=== PATIENT | female | born 1985 | race Caucasian/White ===

== ENCOUNTER 2017-03-14 16:12 | Emergency (ER) | payer OTHER ==
[2017-03-14 16:28] VITALS: RESP 18
[2017-03-14] MEDS ORDERED: PANTOPRAZOLE 40 MG/10 ML VIAL IVP STA (17:02)
[2017-03-14] MEDS ORDERED: SODIUM CHLORIDE 0.9% 1,000 ML IV STA ×2 (17:02)
[2017-03-14] MEDS ORDERED: ONDANSETRON 4 MG/2 ML VIAL IVP STA (17:02)
[2017-03-14 17:31] LABS: Basophils % (A) 1 %; CHCM 35.1; Eosinophils # (A) 0.1 k/uL (0-0.7); Eosinophils % (A) 2 %; HCT 40.7 % (34.0-46.0); HDW 2.34; HGB 13.7 gm/dL (11.4-16.0); Luc # (Auto) 0.11; Luc % (Auto) 2; Lymphocytes # (A) 1.9 k/uL (1.0-4.8); Lymphocytes % (A) 27 %; MCH 31.8 pg (25.0-35.0); MCHC 33.6 g/dL (31.0-37.0); MCV 94.6 fL (80.0-100.0); Mean Platelet Volume 7.5; Monocytes # (A) 0.4 k/uL (0-1.0); Monocytes % (A) 5 %; Neutrophils # (A) 4.6 k/uL (1.3-7.7); Neutrophils % (A) 64 %; RBC 4.31 m/uL (3.80-5.40); RDW 12.6 % (11.5-15.5); WBC 7.1 k/uL (3.8-10.6); WBC (Perox) 7.12
[2017-03-14 17:40] LABS: ALT 32 U/L (9-52); AST 20 U/L (14-36); Alkaline Phosphatase 46 U/L (38-126); Amylase 44 U/L (30-110); Anion Gap 12 mmol/L; Blood Urea Nitrogen 11 mg/dL (7-17); C Reactive Protein <5.0 mg/L (<10.0); Calcium 9.3 mg/dL (8.4-10.2); Carbon Dioxide 25 mmol/L (22-30); Chloride 103 mmol/L (98-107); Glucose 114 mg/dL (74-99); Non-African American GFR(MDRD) >60 (>60 ml/min/1.73 sqM); Potassium 4.1 mmol/L (3.5-5.1); Sodium 140 mmol/L (137-145); Total Bilirubin 0.5 mg/dL (0.2-1.3)
[2017-03-14 17:43] LABS: Amorphous Sediment,Urine Occasional /hpf; Appearance,Urine Clear (Clear); Bilirubin,Urine Negative (Negative); Glucose,Urine (UA) Negative (Negative); Ketones,Urine Negative (Negative); Leukocyte Esterase,Urine Negative (Negative); Mucus,Urine Many /hpf; Nitrite,Urine Negative (Negative); PH, Urine 5.5 (5.0-8.0); Particle Count 6637; Protein,Urine Negative (Negative); RBC,Urine 1 /hpf (0-5); Specific Gravity,Urine 1.022 (1.001-1.035); Squamous Epithelial Cell,Urine 1 /hpf (0-4); UA Billing (MACRO vs. MICRO) MICRO; WBC,Urine 2 /hpf (0-5)
--- NOTE | 2017-03-14 18:14 | XR ---
EXAMINATION TYPE: XR KUB DATE OF EXAM: 03/14/2017 COMPARISON: 04/22/2011 HISTORY: Right-sided pain TECHNIQUE: 2 views FINDINGS: I see no sign of intestinal obstruction or pneumoperitoneum. Fecal pattern is normal. Lung bases are clear. There are no pathologic calcifications over the kidneys. IMPRESSION: Nonacute abdomen. No change.
--- NOTE | 2017-03-14 18:49 | US ---
EXAMINATION TYPE: US abdomen complete DATE OF EXAM: 03/14/2017 COMPARISON: NONE CLINICAL HISTORY: abdominal pain. EXAM MEASUREMENTS: Liver Length: 15.4 cm Gallbladder Wall: 0.24 cm CBD: 0.32 cm Spleen: 9.7 cm Right Kidney: 9.5 x 3.7 x 4.7 cm Left Kidney: 9.8 x 5.0 x 4.5 cm Pancreas: wnl Liver: wnl Gallbladder: anechoic somewhat contracted Evidence for sonographic Holliday's sign: No CBD: wnl Spleen: wnl Right Kidney: No hydronephrosis or masses seen Left Kidney: No hydronephrosis or masses seen Upper IVC: wnl Abd Aorta: wnl Conclusion Negative complete abdominal sonogram.
--- NOTE | 2017-03-14 19:33 | ED ---
Abdominal Pain HPI - General Chief Complaint: Abdominal Pain Stated Complaint: Abd Pain/Back Pain Time Seen by Provider: 03/14/17 16:41 Source: patient Mode of arrival: ambulatory Limitations: no limitations - History of Present Illness Initial Comments: 30 years old female sent with excruciating right upper quadrant pain it started 2 hours ago after she was eating lunch less and she noticed that no fever had some chills and some nausea no vomiting and this is not the first time she had this pain after large meals or after certain meals this pain shows a she has no history of any gallbladder or appendicitis surgeries and she denies any history of kidney stones and rhythm or so for his her family for possible medical history is significant for ablation done and [facility] when she takes collected 9, devious system is negative otherwise - Related Data Home Medications Medication Instructions Recorded Confirmed Flecainide [Tambocor] 50 mg PO DAILY 03/14/17 03/14/17 Norethindrone-E.estradiol-Iron 1 tab PO HS 03/14/17 03/14/17 [Junel Fe 1.5 mg-30 Mcg Tablet] Allergies Allergy/AdvReac Type Severity Reaction Status Date / Time No Known Allergies Allergy Verified 03/14/17 16:47 Review of Systems ROS Statement: Those systems with pertinent positive or pertinent negative responses have been documented in the HPI. ROS Other: All systems not noted in ROS Statement are negative. Past Medical History Past Medical History: No Reported History Additional Past Medical History / Comment(s): see Dr. Gary's H&P History of Any Multi-Drug Resistant Organisms: None Reported Past Surgical History: Orthopedic Surgery Additional Past Surgical History / Comment(s): right knee Past Anesthesia/Blood Transfusion Reactions: Previous Problems w/ Anesthesia Additional Past Anesthesia/Blood Transfusion Reaction / Comment(s): pt had routine colonoscopy and per pt, she went bradycardic and was told they had a hard time bringing her heart rate up, and difficult to wake up post op Past Psychological History: No Psychological Hx Reported Smoking Status: Former smoker Past Alcohol Use History: Occasional Past Drug Use History: None Reported - Past Family History Sister(s) Additional Family Medical History / Comment(s): POTS (POSTURAL ORTHOSTATIC TACHY SYNDROM) Mother Additional Family Medical History / Comment(s): ON MOM'S SIDE, GRANDMA AND UNCLES WITH VALVE ISSUES General Exam - General Exam Comments Initial Comments: General: The patient is awake and alert, in in severe distress Skin: Skin is warm and dry and no rashes or lesions are noted. Eye: Pupils are equal, round and reactive to light, extra-ocular movements are intact; there is normal conjunctiva bilaterally. Ears, nose, mouth and throat: There are moist mucous membranes and no oral lesions. Neck: The neck is supple, there is no tenderness or JVD. Cardiovascular: There is a regular rate and rhythm. No murmur, rub or gallop is appreciated. Respiratory: To auscultation bilateral, no wheezing no rhonchi no distress respiratory harris noticed Gastrointestinal: Very tender in the epigastric area very tender over the right upper quadrant area, she is guarding Back: There is no tenderness to palpation in the midline. There is no obvious deformity. Musculoskeletal: Normal ROM, no tenderness, There is no pedal edema. There is no calf tenderness or swelling. No cords were appreciated. Neurological: CN II-XII intact, Cranial nerves III through XII are intact. There are no obvious motor or sensory deficits. Coordination appears grossly intact. Speech is normal. Psychiatric: Cooperative, appropriate mood & affect, normal judgment. Limitations: no limitations Course Vital Signs 03/14/17 16:25 Temperature 97.9 F Pulse Rate 86 Respiratory 18 Rate Blood Pressure 99/50 O2 Sat by Pulse 99 Oximetry She was reassessed 5 year 1931, CBC, CMP, LFTs, beta hCG, C-reactive protein KUB x-ray and absolutely normal and she is pain-free she was going home. she discussed about the possibility of phenytoin 20 no ulcer or duodenitis was recommended whether she goes on her ppis or h2 blockers she preferred zantac she was told that zantac [id number] 50 mg twice daily for next month and if this does not get better she would need to have a scope him a she agreed that she was also advised to get a family doctor Medical Decision Making - Lab Data Result diagrams: 03/14/17 17:17 03/14/17 17:17 Lab Results 03/14/17 03/14/17 03/14/17 Range/Units 17:17 17:17 17:17 WBC 7.1 (3.8-10.6) k/uL RBC 4.31 (3.80-5.40) m/uL Hgb 13.7 (11.4-16.0) gm/dL Hct 40.7 (34.0-46.0) % MCV 94.6 (80.0-100.0) fL MCH 31.8 (25.0-35.0) pg MCHC 33.6 (31.0-37.0) g/dL RDW 12.6 (11.5-15.5) % Plt Count 288 (150-450) k/uL Neutrophils % 64 % Lymphocytes % 27 % Monocytes % 5 % Eosinophils % 2 % Basophils % 1 % Neutrophils # 4.6 (1.3-7.7) k/uL Lymphocytes # 1.9 (1.0-4.8) k/uL Monocytes # 0.4 (0-1.0) k/uL Eosinophils # 0.1 (0-0.7) k/uL Basophils # 0.0 (0-0.2) k/uL Sodium 140 (137-145) mmol/L Potassium 4.1 (3.5-5.1) mmol/L Chloride 103 (98-107) mmol/L Carbon Dioxide 25 (22-30) mmol/L Anion Gap 12 mmol/L BUN 11 (7-17) mg/dL Creatinine 0.70 (0.52-1.04) mg/dL Est GFR (MDRD) Af Amer >60 (>60 ml/min/1.73 sqM) Est GFR (MDRD) Non-Af >60 (>60 ml/min/1.73 sqM) Glucose 114 H (74-99) mg/dL Calcium 9.3 (8.4-10.2) mg/dL Total Bilirubin 0.5 (0.2-1.3) mg/dL AST 20 (14-36) U/L ALT 32 (9-52) U/L Alkaline Phosphatase 46 (38-126) U/L C-Reactive Protein <5.0 (<10.0) mg/L Total Protein 7.0 (6.3-8.2) g/dL Albumin 4.5 (3.5-5.0) g/dL Amylase 44 (30-110) U/L Lipase 84 (23-300) U/L Urine Color Yellow Urine Appearance Clear (Clear) Urine pH 5.5 (5.0-8.0) Ur Specific [place] 1.022 (1.001-1.035) Urine Protein Negative (Negative) Urine Glucose (UA) Negative (Negative) Urine Ketones Negative (Negative) Urine Blood Small H (Negative) Urine Nitrite Negative (Negative) Urine Bilirubin Negative (Negative) Urine Urobilinogen 2.0 (<2.0) mg/dL Ur Leukocyte Esterase Negative (Negative) Urine RBC 1 (0-5) /hpf Urine WBC 2 (0-5) /hpf Ur Squamous Epith Cells 1 (0-4) /hpf Amorphous Sediment Occasional H (None) /hpf Urine Mucus Many H (None) /hpf Urine HCG, Qual (Not Detectd) 03/14/17 Range/Units 17:17 WBC (3.8-10.6) k/uL RBC (3.80-5.40) m/uL Hgb (11.4-16.0) gm/dL Hct (34.0-46.0) % MCV (80.0-100.0) fL MCH (25.0-35.0) pg MCHC (31.0-37.0) g/dL RDW (11.5-15.5) % Plt Count (150-450) k/uL Neutrophils % % Lymphocytes % % Monocytes % % Eosinophils % % Basophils % % Neutrophils # (1.3-7.7) k/uL Lymphocytes # (1.0-4.8) k/uL Monocytes # (0-1.0) k/uL Eosinophils # (0-0.7) k/uL Basophils # (0-0.2) k/uL Sodium (137-145) mmol/L Potassium (3.5-5.1) mmol/L Chloride (98-107) mmol/L Carbon Dioxide (22-30) mmol/L Anion Gap mmol/L BUN (7-17) mg/dL Creatinine (0.52-1.04) mg/dL Est GFR (MDRD) Af Amer (>60 ml/min/1.73 sqM) Est GFR (MDRD) Non-Af (>60 ml/min/1.73 sqM) Glucose (74-99) mg/dL Calcium (8.4-10.2) mg/dL Total Bilirubin (0.2-1.3) mg/dL AST (14-36) U/L ALT (9-52) U/L Alkaline Phosphatase (38-126) U/L C-Reactive Protein (<10.0) mg/L Total Protein (6.3-8.2) g/dL Albumin (3.5-5.0) g/dL Amylase (30-110) U/L Lipase (23-300) U/L Urine Color Urine Appearance (Clear) Urine pH (5.0-8.0) Ur Specific [place] (1.001-1.035) Urine Protein (Negative) Urine Glucose (UA) (Negative) Urine Ketones (Negative) Urine Blood (Negative) Urine Nitrite (Negative) Urine Bilirubin (Negative) Urine Urobilinogen (<2.0) mg/dL Ur Leukocyte Esterase (Negative) Urine RBC (0-5) /hpf Urine WBC (0-5) /hpf Ur Squamous Epith Cells (0-4) /hpf Amorphous Sediment (None) /hpf Urine Mucus (None) /hpf Urine HCG, Qual Not Detected (Not Detectd) Disposition Clinical Impression: Abdominal pain Disposition: HOME SELF-CARE Condition: Good Instructions: Abdominal Pain (ED) Referrals: None,Stated [Primary Care Provider] - 1-2 days
[2017-03-14 19:35] VITALS: BP 108/54; PULSE 65; TEMP 98.7
== END 2017-03-14 19:48 | disposition home or self-care (01) ==
LOC: EC 16:12
DX: R10.11 Right upper quadrant pain (principal); R68.83 Chills (without fever); R11.0 Nausea; Z87.891 Personal history of nicotine dependence; Z79.3 Long term (current) use of hormonal contraceptives; Z79.899 Other long term (current) drug therapy
CPT/HCPCS: 36415; 80053; 82150; 83690; 85025; 86140; 81001; 81025; 74000; 76700; 99284; 96374; 96375; 96361 ×2; J2405; C9113

== ENCOUNTER 2017-09-04 09:12 | Observation (INO) | payer BC ==
[2017-09-04] MEDS ORDERED: NITROGLYCERIN SL TABS 0.4 MG TAB SUBLINGUAL STA (09:27)
[2017-09-04] MEDS ORDERED: ASPIRIN 81 MG PO STA (09:27)
--- NOTE | 2017-09-04 09:32 | ED ---
Chest Pain HPI - General Chief Complaint: Chest Pain Stated Complaint: Chest Pain Time Seen by Provider: 09/04/17 09:17 Source: patient, RN notes reviewed Mode of arrival: ambulatory Limitations: no limitations - History of Present Illness Initial Comments: This is a 32-year-old female with a history of mitral and aortic valve insufficiency who states she's had left-sided chest tightness for past 2 days it is about 8/10 and seems to get worse with standing and movement she does have exertional dyspnea. She states she does have a history of right ventricular out flow tachycardia. She denies any fevers chills nausea vomiting sweats cough or phlegm production no recent illnesses no new medications. There is extensive family history of heart disease in the patient's family patient is not a smoker she states her last menstrual period was 2 days ago. No drugs or alcohol reported. MD Complaint: chest pain - Related Data Home Medications Medication Instructions Recorded Confirmed Flecainide [Tambocor] 50 mg PO DAILY 03/14/17 09/04/17 Multivitamins, Thera [Multivitamin 1 tab PO DAILY 09/04/17 09/04/17 (formulary)] Allergies Allergy/AdvReac Type Severity Reaction Status Date / Time No Known Allergies Allergy Verified 09/04/17 09:33 Review of Systems ROS Statement: Those systems with pertinent positive or pertinent negative responses have been documented in the HPI. ROS Other: All systems not noted in ROS Statement are negative. EKG Findings - EKG Results: EKG: interpreted by ERMD (Sinus bradycardia with frequent PVCs are is a bigeminal pattern. Rate was 60. Interval 150 QRS duration 94 QT since QTC of 436/436) Past Medical History Past Medical History: No Reported History Additional Past Medical History / Comment(s): see Dr. Gary's H&P rvot History of Any Multi-Drug Resistant Organisms: None Reported Past Surgical History: Orthopedic Surgery Additional Past Surgical History / Comment(s): right knee cardiac ablation Past Anesthesia/Blood Transfusion Reactions: Previous Problems w/ Anesthesia Additional Past Anesthesia/Blood Transfusion Reaction / Comment(s): pt had routine colonoscopy and per pt, she went bradycardic and was told they had a hard time bringing her heart rate up, and difficult to wake up post op Past Psychological History: No Psychological Hx Reported Smoking Status: Former smoker Past Alcohol Use History: Rare Past Drug Use History: None Reported - Past Family History Sister(s) Additional Family Medical History / Comment(s): POTS (POSTURAL ORTHOSTATIC TACHY SYNDROM) Mother Additional Family Medical History / Comment(s): ON MOM'S SIDE, GRANDMA AND UNCLES WITH VALVE ISSUES General Exam - General Exam Comments Initial Comments: This is a well-developed well-nourished awake alert oriented 3 female Limitations: no limitations General appearance: alert, anxious Head exam: Present: atraumatic, normocephalic, normal inspection Eye exam: Present: normal appearance, PERRL, EOMI. Absent: scleral icterus, conjunctival injection, periorbital swelling ENT exam: Present: normal exam, mucous membranes moist Neck exam: Present: normal inspection. Absent: tenderness, meningismus, lymphadenopathy Respiratory exam: Present: normal lung sounds bilaterally, chest wall tenderness (Tenderness to palpation over the left costochondral costal sternal margins and over the pectoralis muscles this does seem to reproduce the patient' s pain.). Absent: respiratory distress, wheezes, rales, rhonchi, stridor Cardiovascular Exam: Present: bradycardia, irregular rhythm, normal heart sounds. Absent: systolic murmur, diastolic murmur, rubs, gallop, clicks GI/Abdominal exam: Present: soft, normal bowel sounds. Absent: distended, tenderness, guarding, rebound, rigid Extremities exam: Present: normal inspection, full ROM, normal capillary refill. Absent: tenderness, pedal edema, joint swelling, calf tenderness Back exam: Present: normal inspection Neurological exam: Present: alert, oriented X3, CN II-XII intact Psychiatric exam: Present: normal affect, normal mood Skin exam: Present: warm, dry, intact, normal color. Absent: rash Course Vital Signs 09/04/17 09:13 Temperature 97.8 F Pulse Rate 48 L Respiratory 18 Rate Blood Pressure 121/57 O2 Sat by Pulse 100 Oximetry - Reevaluation(s) Reevaluation #1: 09/04/17 13:21 The patient states she had no improvement from the IV Toradol. The pain still is reproducible however with certain movements and palpation. Chest Pain MDM - MDM I did review the imaging and reports no acute findings. Patient will be admitted did discuss the case with cardiology and with Dr. Edwards she does have intermittent episodes of I gently. The chest pain though likely musculoskeletal could be related to cardiac etiology. Patient does not want nitroglycerin at this time. Disposition Clinical Impression: Bigeminy, Atypical chest pain Disposition: ADMITTED IP TO THIS HOSP Condition: Stable Referrals: Frank Ramos DO [Primary Care Provider] - 1-2 days
[2017-09-04] MEDS ORDERED: KETOROLAC 30 MG/ML 1 ML VIAL IVP STA (09:47)
--- NOTE | 2017-09-04 10:06 | XR ---
EXAMINATION TYPE: XR chest 2V DATE OF EXAM: 09/04/2017 COMPARISON: NONE TECHNIQUE: PA and lateral views submitted. HISTORY: Irregular heartbeat FINDINGS: The lungs are clear and there is no pneumothorax, pleural effusion, or focal pneumonia. IMPRESSION: 1. No acute process.
[2017-09-04 10:12] LABS: Basophils % (A) 0 %; Eosinophils # (A) 0.2 k/uL (0-0.7); Eosinophils % (A) 3 %; HCT 39.3 % (34.0-46.0); HGB 13.1 gm/dL (11.4-16.0); Lymphocytes # (A) 1.4 k/uL (1.0-4.8); Lymphocytes % (A) 28 %; MCHC 33.3 g/dL (31.0-37.0); Monocytes # (A) 0.3 k/uL (0-1.0); Monocytes % (A) 5 %; Neutrophils # (A) 3.2 k/uL (1.3-7.7); Neutrophils % (A) 62 %; Platelet Count 254 k/uL (150-450); RBC 4.22 m/uL (3.80-5.40); RDW 12.1 % (11.5-15.5); WBC 5.2 k/uL (3.8-10.6)
[2017-09-04 10:24] LABS: D-Dimer 0.37 mg/L FEU (<0.60); Partial Thromboplastin Time 24.3 sec (22.0-30.0); Prothrombin Time 9.7 sec (9.0-12.0)
[2017-09-04 10:25] LABS: ALT 29 U/L (9-52); AST 19 U/L (14-36); Albumin 4.3 g/dL (3.5-5.0); Alkaline Phosphatase 39 U/L (38-126); Anion Gap 11 mmol/L; Blood Urea Nitrogen 11 mg/dL (7-17); Calcium 9.3 mg/dL (8.4-10.2); Carbon Dioxide 26 mmol/L (22-30); Chloride 105 mmol/L (98-107); Glucose 65 mg/dL (74-99); Magnesium 1.9 mg/dL (1.6-2.3); Potassium 4.1 mmol/L (3.5-5.1); Sodium 142 mmol/L (137-145); Total Bilirubin 0.6 mg/dL (0.2-1.3); Total Protein 6.9 g/dL (6.3-8.2)
[2017-09-04 10:45] LABS: Creatine Kinase 73 U/L (30-135)
[2017-09-04 10:57] LABS: Creatine Kinase MB 0.3 ng/mL (0.0-2.4); Troponin I <0.012 ng/mL (0.000-0.034)
[2017-09-04] MEDS ORDERED: NITROGLYCERIN SL TABS 0.4 MG TAB SUBLINGUAL PRN (13:23)
[2017-09-04] MEDS ORDERED: ACETAMINOPHEN TAB 500 MG TAB PO PRN (15:22)
[2017-09-04] MEDS: SODIUM CHLORIDE 0.9% 1,000 ML IV SCH (15:34)
[2017-09-04] MEDS ORDERED: ALPRAZolam 0.25 MG TAB PO PRN (16:44)
[2017-09-04 16:49] LABS: Creatine Kinase 60 U/L (30-135)
[2017-09-04 17:00] LABS: Creatine Kinase MB <0.2 ng/mL (0.0-2.4); Troponin I <0.012 ng/mL (0.000-0.034)
[2017-09-04 18:40] LABS: Glucose,Whole Blood 119 mg/dL (75-99)
--- NOTE | 2017-09-04 18:41 | HP ---
HISTORY AND PHYSICAL DATE OF SERVICE: 09/04/2017. CHIEF COMPLAINT: Palpitations and chest tightness on the left side. HISTORY OF PRESENT ILLNESS: This 32-year-old woman with a past medical history of multiple medical problems including PVCs, mitral and aortic insufficiency, right ventricle outflow tachycardia, history of vertigo as well. Patient had a previous cardiac ablation by Dr. Gary. The patient also has and the patient is on flecainide. For the last week the patient has been having twitching in the chest, left-sided weakness and dizziness, and multiple symptomatology. The patient came to [facility] and was found to be bradycardic with PVCs. She was admitted for evaluation and treatment. Cardiology has been consulted. There is no history of any fevers or rigors. No history of headache, loss of consciousness, seizures. PAST MEDICAL HISTORY: History of mitral aortic insufficiency, right ventricle outflow tachycardia and PVCs, history of cardiac ablation. MEDICATIONS: 1. Multivitamins 1 daily. 2. Flecainide 50 mg. ALLERGIES: None. FAMILY HISTORY: History of POTS and vascular disorder. SOCIAL HISTORY: History of occasional alcohol intake. Previous history of smoking. REVIEW OF SYSTEMS: ENT: No diminished hearing or vision. CARDIOVASCULAR: As mentioned. RESPIRATORY: As mentioned. GI: No nausea or vomiting. : No dysuria. NERVOUS SYSTEM: No numbness or weakness. ALLERGY/IMMUNOLOGY: No hayfever. MUSCULOSKELETAL: As mentioned earlier. HEMATOLOGY/ONCOLOGY: No history of anemia. ENDOCRINE: No history of diabetes or hypothyroidism. CONSTITUTIONAL: As mentioned. DERMATOLOGY: As mentioned. PSYCHIATRY: As mentioned. PHYSICAL EXAMINATION: Alert, oriented x3. Pulse 58, blood pressure 98/40, respirations 17, temperature 97.8 pulse ox 100% on room air. HEENT: Oral mucosa moist. NECK: No jugular venous distention. No lymph node enlargement. CARDIOVASCULAR: S1 and S2. Occasional irregularity. S3 or S4. LUNGS: Breath sounds diminished at the bases. No rhonchi no crackles. ABDOMEN: Soft, nontender. No mass palpable. LEGS: No edema. No swelling. NERVOUS SYSTEM: Higher functions as mentioned earlier, moves all 4 limbs. LYMPHATICS: No lymph nodes palpable in the neck. SKIN: No rash or ulcer. LAB STUDIES: Glucose 65, otherwise normal findings. EKG is not available. Rhythm strip showed PVCs. Chest x-ray no acute process. ASSESSMENT: 1. Left-sided chest pain with cardiac arrhythmia. 2. History of premature ventricular contractions and right ventricular outflow tract tachycardia and cardiac ablation. 3. Mitral and aortic insufficiency. 4. History of vertigo. 5. History hypoglycemia. 6. History of recent ear infection. 7. History of degenerative joint disease. 8. History of bradycardia. 9. Remote nicotine dependence. RECOMMENDATIONS AND DISCUSSION: This 32-year-old woman who presented with multiple complex medical issues, we will monitor the patient closely, continue the current management and symptomatic treatment. At this time I recommend telemetry. Continue the home medications. Cardiology evaluation. A set of troponins. Monitor blood sugars closely. Otherwise, exact etiology of hypoglycemia is also unknown at this time. I would recommend close follow up with Dr. Ramos in the outpatient setting. Otherwise further recommendations to follow. LOURDES / TRAVON: [id number] / MTDD
[2017-09-04 19:07] LABS: Appearance,Urine Clear (Clear); Bilirubin,Urine Negative (Negative); Blood,Urine Negative (Negative); Color,Urine Light Yellow; Glucose,Urine (UA) Negative (Negative); Ketones,Urine Negative (Negative); Leukocyte Esterase,Urine Negative (Negative); Nitrite,Urine Negative (Negative); PH, Urine 6.5 (5.0-8.0); Protein,Urine Negative (Negative); Specific Gravity,Urine 1.006 (1.001-1.035); Urobilinogen,Urine <2.0 mg/dL (<2.0)
[2017-09-04 19:17] LABS: Amphetamine Screen,Urine Not Detected (NotDetected); Barbiturate Screen,Urine Not Detected (NotDetected); Benzodiazepines Screen,Urine Not Detected (NotDetected); Cocaine Screen,Urine Not Detected (NotDetected); Methadone Screen, Urine Not Detected (NotDetected); Opiate Screen,Urine Not Detected (NotDetected); Oxycodone Screen, Urine Not Detected (NotDetected); Phencyclidine Screen,Urine Not Detected (NotDetected); Tricyclic Antidepressant,Urine Not Detected (NotDetected); Urn Cannabinoid Scrn Not Detected (NotDetected)
[2017-09-04 19:20] VITALS: RESP 16
[2017-09-04 22:06] LABS: Creatine Kinase 60 U/L (30-135)
[2017-09-04 22:19] LABS: Creatine Kinase MB <0.2 ng/mL (0.0-2.4); Troponin I <0.012 ng/mL (0.000-0.034)
[2017-09-05] MEDS ORDERED: ONDANSETRON 4 MG/2 ML VIAL IVP PRN (03:54)
[2017-09-05] MEDS ORDERED: PANTOPRAZOLE 40 MG TABLET PO SCH (07:30)
[2017-09-05 07:45] LABS: Magnesium 2.1 mg/dL (1.6-2.3)
[2017-09-05] MEDS ORDERED: FLECAINIDE 50 MG TAB PO SCH (09:00)
[2017-09-05] MEDS ORDERED: ASPIRIN 325 MG TAB PO SCH (09:00)
[2017-09-05] MEDS ORDERED: MULTIVITAMINS, THERA 1 EACH TAB PO SCH (12:00)
[2017-09-05] MEDS ORDERED: SODIUM CHLORIDE 0.9% 500 ML IV ONE (14:55)
--- NOTE | 2017-09-05 15:07 | P.CRDCN ---
History of Present Illness Consult date: 09/05/17 History of present illness: Mrs. Farias is a pleasant 32-year-old female past medical history significant for right ventricular outflow PVC's s/p ablation 2016 that was unsuccessful. She has been maintained on flecanide since. She presented to the hospital with complaints of generalized weakness, dizziness, nausea, chest pain and palpitations. EKG on arrival reveals sinus bradycardia with frequent PVC's. After each PVC there is atrial compensation and return to normal complex. She states she has not taken her flecanide since Friday morning. Overnight she got up to go to the bathroom and became acutely dizzy and nauseated. This persisted for over an hour. Antiemetics Zofran was given and she got relief. Orthostatic blood pressures were obtained and her blood pressure improved with each position change although blood pressure supine was 71/50. Chest x-ray negative for acute cardiopulmonary process. Laboratory data reviewed, hemoglobin 13.1, platelets 254, d-dimer 0.37, potassium 4.1, magnesium 1.9, cardiac enzymes negative 3, proBNP 127, LDL 95. Current cardiac medications flecanide 50 mg daily. Most recent echocardiogram performed in 2016 reveals preserved left ventricular systolic function with ejection fraction 50-55% with no evidence of valvular heart disease. Review of Systems At the time of my exam: CONSTITUTIONAL: Denies fever. Denies chills. EYES: Denies blurred vision. Denies vision changes. Denies eye pain. EARS, NOSE, MOUTH & THROAT: Denies headache. Denies sore throat. Denies ear pain. CARDIOVASCULAR: Denies chest pain. Denies shortness of breath. Denies orthopnea. Denies PND. Denies palpitations. RESPIRATORY: Denies cough. GASTROINTESTINAL: Denies abdominal pain. Denies diarrhea. Denies constipation. Complains of nausea. Denies vomiting. MUSCULOSKELETAL: Denies myalgias. INTEGUMENTARY: Denies pruitis. Denies rash. NEUROLOGIC: Denies numbness. Denies tingling. Complains of dizziness. PSYCHIATRIC: Denies anxiety. Denies depression. ENDOCRINE: Complains of weakness and fatigue. Denies weight change. Denies polydipsia. Denies polyurina. GENITOURINARY: Denies burning, hematuria or urgency with micturation. HEMATOLOGIC: Denies history of anemia. Denies bleeding. Past Medical History Past Medical History: No Reported History Additional Past Medical History / Comment(s): Mitral and aortic insufficiency, R ventricular out flow tachycardia, PVCs, vertigo, palpitations, hypoglycemia, recent ear infection/strep throat treated with antibiotics. History of Any Multi-Drug Resistant Organisms: None Reported Past Surgical History: Cardiac Ablation, Orthopedic Surgery Additional Past Surgical History / Comment(s): 2016 EPS with cardiac ablation, R knee arthroscopy, colonoscopy Past Anesthesia/Blood Transfusion Reactions: Previous Problems w/ Anesthesia Additional Past Anesthesia/Blood Transfusion Reaction / Comment(s): pt had routine colonoscopy and per pt, she went bradycardic and was told they had a hard time bringing her heart rate up, and difficult to wake up post op Smoking Status: Former smoker - Past Family History Sister(s) Additional Family Medical History / Comment(s): POTS (POSTURAL ORTHOSTATIC TACHY SYNDROM) Mother Additional Family Medical History / Comment(s): Mother "never goes to the doctor." Grandmother and 2 uncles on mother's side have cardiac valve disease and grandmother also had CABG Father Family Medical History: Vascular Disorder Additional Family Medical History / Comment(s): Father had aneurysm behind his knee. Medications and Allergies Home Medications Medication Instructions Recorded Confirmed Type Flecainide [Tambocor] 50 mg PO DAILY 03/14/17 09/04/17 History Multivitamins, Thera [Multivitamin 1 tab PO DAILY 09/04/17 09/04/17 History (formulary)] Allergies Allergy/AdvReac Type Severity Reaction Status Date / Time No Known Allergies Allergy Verified 09/04/17 09:33 Physical Exam Vitals: Vital Signs Temp Pulse Pulse Pulse Pulse Resp BP 09/05/17 12:00 59 L 62 65 56 L 16 09/05/17 11:51 98.8 F 56 L 16 09/05/17 09:23 59 L 62 65 91/59 09/05/17 08:00 64 16 09/05/17 07:39 98 F 64 16 09/05/17 03:44 98.1 F 51 L 16 09/05/17 03:32 16 09/04/17 23:46 16 09/04/17 23:33 98.4 F 47 L 16 09/04/17 20:00 16 09/04/17 19:19 99.1 F 60 16 09/04/17 15:53 97.3 F L 58 L 17 BP BP BP Pulse Ox 09/05/17 12:00 09/05/17 11:51 86/44 100 09/05/17 09:23 94/52 71/50 09/05/17 08:00 09/05/17 07:39 99/45 98 09/05/17 03:44 90/52 96 09/05/17 03:32 09/04/17 23:46 09/04/17 23:33 91/48 98 09/04/17 20:00 09/04/17 19:19 103/53 99 09/04/17 15:53 98/41 100 Intake and Output 09/04/17 09/05/17 09/05/17 22:59 06:59 14:59 Intake Total 480 250 Balance 480 250 Intake: Oral 480 250 Other: Voiding Method Toilet Toilet Toilet # Voids 1 1 Blood pressure 86/44 heart rate 56 afebrile maintaining oxygen saturations on room air. GENERAL: This is a 32-year-old female in no apparent distress at the time of my examination. HEENT: Head is atraumatic, normocephalic. Pupils are equal, round. Sclerae anicteric. Conjunctivae are clear. Mucous membranes of the mouth are moist. Neck is supple. There is no jugular venous distention. No carotid bruit is heard. LUNGS: Clear to auscultation no wheezes, rales or rhonchi. No chest wall tenderness is noted on palpation or with deep breathing. HEART: Regular rate and rhythm without murmurs, rubs or gallops. S1 and S2 heard. ABDOMEN: Soft, nontender. Bowel sounds are heard. No organomegaly noted. EXTREMITIES: No evidence of peripheral edema and no calf tenderness noted. VASCULAR: Radial and dorsalis pedis pulses palpated, no evidence of clubbing. NEUROLOGIC: Patient is awake, alert and oriented x3. Results 09/04/17 09:40 09/04/17 09:40 Cardiac Enzymes 09/04/17 09/04/17 Range/Units 15:58 21:17 CK-MB (CK-2) <0.2 <0.2 (0.0-2.4) ng/mL Troponin I <0.012 <0.012 (0.000-0.034) ng/mL Lipids 09/05/17 Range/Units 06:40 Triglycerides 81 (<150) mg/dL Cholesterol 166 (<200) mg/dL HDL Cholesterol 55 (40-60) mg/dL Current Medications Generic Name Dose Route Start Last Admin Trade Name Freq PRN Reason Stop Dose Admin Acetaminophen 1,000 mg 09/04/17 15:22 09/04/17 15:33 Tylenol Tab PO 1,000 mg Q6HR PRN Administration Fever and/ or mild Pain Alprazolam 0.25 mg 09/04/17 16:44 Xanax PO TID PRN Anxiety Aspirin 325 mg 09/05/17 09:00 09/05/17 09:24 Aspirin PO 325 mg DAILY NAVEEN Administration Flecainide Acetate 50 mg 09/05/17 09:00 09/05/17 09:24 Tambocor PO 50 mg DAILY NAVEEN Administration Sodium Chloride 1,000 mls @ 20 mls/hr 09/04/17 13:30 09/04/17 15:34 Saline 0.9% IV Not Given .Q24H [facility] Multivitamins 1 each 09/05/17 12:00 09/05/17 12:32 Theragran PO 1 each 1200 NAVEEN Administration Nitroglycerin 0.4 mg 09/04/17 13:23 Nitrostat SUBLINGUAL Q5M PRN Chest Pain Ondansetron HCl 4 mg 09/05/17 03:54 09/05/17 04:07 Zofran IVP 4 mg Q6HR PRN Administration Nausea And Vomiting Pantoprazole Sodium 40 mg 09/05/17 07:30 09/05/17 09:24 Protonix PO 40 mg [id number] NAVEEN Administration Intake and Output 09/04/17 09/05/17 09/05/17 22:59 06:59 14:59 Intake Total 480 250 Balance 480 250 Intake: Oral 480 250 Other: Voiding Method Toilet Toilet Toilet # Voids 1 1 09/04/17 09:40 09/04/17 09:40 Assessment and Plan Assessment: ASSESSMENT 1. Chest pain, atypical. No EKG evidence of ischemia and negative cardiac enzymes. 2. Frequent PVC's, maintained on flecanide s/p ablation PLAN An acute coronary event has been ruled out. Repeat EKG done now reveals sinus bradycardia heart rate 48 with evidence of early repolarization, no PVC's, no ST or T-wave abnormalities. Obtain 2D echocardiogram and doppler study to assess cardiac structure and function. She was also seen this morning by Dr. Gary, EKG reviewed, he requested she be given her am dose of flecanide and increase activity this morning. Give normal saline bolus of 500 cc. Increase salt intake and change positions slowly. Also recommend compression stockings. Follow up with Dr. Gary in 2-3 weeks. Plan has been discussed with the patient and she is agreeable. Thank you kindly for this consultation. Nurse Practitioner note has been reviewed, I agree with a documented findings and plan of care. Patient was seen and examined.
[2017-09-05 16:05] VITALS: BP 96/49; PULSE 51; TEMP 98.1
[2017-09-05 16:05] LABS: Hemoglobin A1C 4.9 % (4.0-6.0)
[2017-09-05] MEDS: SODIUM CHLORIDE 0.9% 1,000 ML IV SCH (16:31)
--- NOTE | 2017-09-08 13:13 | ECHOF ---
Referral Reason:cp MEASUREMENTS -------- HEIGHT: 170.2 cm WEIGHT: 66.2 kg BP: 71/50 RVIDd: 3.1 cm (< 3.3) IVSd: 0.9 cm (0.6 - 1.1) LVIDd: 3.6 cm (3.9 - 5.3) LVPWd: 0.9 cm (0.6 - 1.1) IVSs: 1.2 cm LVIDs: 2.6 cm LVPWs: 1.5 cm LA Diam: 2.7 cm (2.7 - 3.8) LAESV Index (A-L): 31.77 ml/m Ao Diam: 2.6 cm (2.0 - 3.7) AV Cusp: 1.9 cm (1.5 - 2.6) EPSS: 0.2 cm MV E Sonny: 1.19 m/s MV DecT: 321 ms MV A Sonny: 0.53 m/s MV E/A Ratio: 2.23 MV EF SLOPE: 150.79 mm/s (70 - 150) MV EXCURSION: 1.62 cm (> 18.000) FINDINGS -------- Sinus rhythm with extra systolic beats. This was a technically good study. The left ventricular size is normal. Left ventricular wall thickness is normal. Overall left vent ricular systolic function is normal with, an EF between 55 - 60 %. The right ventricle is normal in size. LA is midly dilated 29-33ml/m2. The right atrium is normal in size. The aortic valve is trileaflet and appears structurally normal. Mild mitral regurgitation is present. Trace tricuspid regurgitation present. Trace/mild (physiologic) pulmonic regurgitation. The aortic root size is normal. Normal inferior vena cava with normal inspiratory collapse consistent with estimated right atrial pre ssure of 5 mmHg. The inferior vena cava is mildly dilated. There is no pericardial effusion. CONCLUSIONS -------- 1. Sinus rhythm with extra systolic beats. 2. This was a technically good study. 3. The left ventricular size is normal. 4. Left ventricular wall thickness is normal. 5. Overall left ventricular systolic function is normal with, an EF between 55 - 60 %. 6. The right ventricle is normal in size. 7. LA is midly dilated 29-33ml/m2. 8. The right atrium is normal in size. 9. The aortic valve is trileaflet and appears structurally normal. 10. Mild mitral regurgitation is present. 11. Trace tricuspid regurgitation present. 12. Trace/mild (physiologic) pulmonic regurgitation. 13. The aortic root size is normal. 14. Normal inferior vena cava with normal inspiratory collapse consistent with estimated right atrial pressure of 5 mmHg. 15. The inferior vena cava is mildly dilated. 16. There is no pericardial effusion. COMPUTER SCIENCE INSTRUCTOR: JERZY Noel
== END 2017-09-05 16:49 | disposition home or self-care (01) ==
LOC: EC 09:12 → 3OBS 13:23
PROVIDERS: ADMIT Hospitalist; ATTEND Hospitalist
DX: R07.89 Other chest pain (principal); I49.3 Ventricular premature depolarization; I08.0 Rheumatic disorders of both mitral and aortic valves; R00.0 Tachycardia, unspecified; R00.2 Palpitations; R42 Dizziness and giddiness; R53.1 Weakness; R25.3 Fasciculation; R11.0 Nausea; Z91.14 Patient's other noncompliance with medication regimen; E16.2 Hypoglycemia, unspecified; M19.90 Unspecified osteoarthritis, unspecified site; Z79.899 Other long term (current) drug therapy; Z84.89 Family history of other specified conditions; Z87.891 Personal history of nicotine dependence; R06.09 Other forms of dyspnea; Z82.49 Family history of ischemic heart disease and other diseases of the circulatory system
CPT/HCPCS: 36415; 71046; 80053; 80061; 80306; 81003; 82550; 82553; 83036; 83735; 83880; 84484; 85025; 85379; 85610; 85730; 93005; 93306; 96374; 96375; 99285

== ENCOUNTER 2018-03-14 07:39 | Emergency (ER) | payer BC ==
--- NOTE | 2018-03-14 08:16 | ED ---
Fall HPI - General Chief Complaint: Fall Stated Complaint: FALL, RT HIP AND LEG PAIN Time Seen by Provider: 03/14/18 08:02 Source: patient, RN notes reviewed, old records reviewed Mode of arrival: ambulatory - History of Present Illness Initial Comments: Patient is a 32-year-old female present the emergency department today after falling off of the edge of a deck. Patient reports that it was approximately 6 feet. Patient states that when she fell she landed on her hip and left shoulder. She states that she had no loss consciousness. Patient states that she mainly complains of right hip pain. Patient reports that she also has some left shoulder pain. She reports that she's taken Advil today with little relief of her pain. She reports his pain with ambulation. Patient denies any peripheral paresthesias or saddle anesthesias. - Related Data Home Medications Medication Instructions Recorded Confirmed Flecainide [Tambocor] 50 mg PO BID 03/14/17 10/15/17 Multivitamins, Thera [Multivitamin 1 tab PO DAILY 09/04/17 10/15/17 (formulary)] Previous Rx's Medication Instructions Recorded Cyclobenzaprine [Flexeril] 10 mg PO TID #20 tab 03/14/18 Ibuprofen [Motrin] 600 mg PO Q8HR PRN #20 tab 03/14/18 Allergies Allergy/AdvReac Type Severity Reaction Status Date / Time No Known Allergies Allergy Verified 03/14/18 07:43 Review of Systems ROS Statement: Those systems with pertinent positive or pertinent negative responses have been documented in the HPI. ROS Other: All systems not noted in ROS Statement are negative. 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 History of Any Multi-Drug Resistant Organisms: None Reported Past Surgical History: Cardiac Ablation, Orthopedic Surgery Additional Past Surgical History / Comment(s): 2016 EPS with cardiac ablation, R knee arthroscopy, colonoscopy. Past Anesthesia/Blood Transfusion Reactions: Previous Problems w/ Anesthesia, Postoperative Nausea & Vomiting (PONV) Additional Past Anesthesia/Blood Transfusion Reaction / Comment(s): Pt had routine colonoscopy and per pt, she went bradycardic and was told they had a hard time bringing her heart rate up, and difficult to wake up post op. Past Psychological History: No Psychological Hx Reported Smoking Status: Current some day smoker Past Alcohol Use History: Occasional Past Drug Use History: None Reported - Past Family History Sister(s) Additional Family Medical History / Comment(s): POTS (POSTURAL ORTHOSTATIC TACHY SYNDROM) Mother Additional Family Medical History / Comment(s): Mother "never goes to the doctor." Grandmother and 2 uncles on mother's side have cardiac valve disease and grandmother also had CABG Father Family Medical History: Vascular Disorder Additional Family Medical History / Comment(s): Father had aneurysm behind his knee. General Exam - General Exam Comments Initial Comments: 32-year-old female. Alert and oriented. No significant distress. Limitations: no limitations General appearance: alert Head exam: Present: atraumatic, normocephalic, normal inspection Eye exam: Present: normal appearance, PERRL, EOMI. Absent: scleral icterus, conjunctival injection, periorbital swelling ENT exam: Present: normal exam, mucous membranes moist Neck exam: Present: normal inspection. Absent: tenderness, meningismus, lymphadenopathy Respiratory exam: Present: normal lung sounds bilaterally. Absent: respiratory distress, wheezes, rales, rhonchi, stridor Cardiovascular Exam: Present: regular rate, normal rhythm, normal heart sounds. Absent: systolic murmur, diastolic murmur, rubs, gallop, clicks GI/Abdominal exam: Present: soft, normal bowel sounds. Absent: distended, tenderness, guarding, rebound, rigid Extremities exam: Present: normal inspection Right Hip exam: Present: normal inspection, tenderness ( is tenderness over the injury occurred after area. ). Absent: full ROM Upper Leg exam: Present: normal inspection, full ROM Knee exam: Present: normal inspection, full ROM Lower Leg exam: Present: normal inspection, full ROM Ankle exam: Present: normal inspection, full ROM Back exam: Present: normal inspection Neurological exam: Present: alert Psychiatric exam: Present: normal affect, normal mood Skin exam: Present: warm, dry, intact, normal color. Absent: rash Course Vital Signs 03/14/18 07:43 Temperature 98.5 F Pulse Rate 51 L Respiratory 18 Rate Blood Pressure 106/62 O2 Sat by Pulse 100 Oximetry Medical Decision Making - Medical Decision Making Patient is a 32-year-old female presents emergency department today with chief complaint of hip pain after a fall. Nose conscious. Patient has pain with any range of motion of the hip. X-rays were completed today and showed no evidence of any acute process. She has no bruising. Patient was able to ambulate after the fall. At this time patient's lumbar spine x-ray was also reviewed and shows evidence of mild scoliosis but no acute process identified. She was offered a shoulder x-ray shows a complain of pain on her shoulder for fall. She only refused. At this time Patient is given Toradol and Norflex as unrelated to her symptoms. Patient will be discharged as having muscle accident and slammed her medication for hip strain and contusion. I discussed that she should follow-up with orthopedic or any primary care physician if symptoms continue to persist. She requests a work note. - Radiology Data Radiology results: report reviewed Lumbar spine shows no acute osseous lesion. Mild level scoliosis. Hip x-ray shows no acute process. Disposition Clinical Impression: Contusion, hip, Left shoulder strain, Fall Disposition: HOME SELF-CARE Condition: Good Instructions: Hip Contusion (ED) Additional Instructions: Patient advised to apply ice over the areas that are sore. Take antiinflammatory medication and muscle relaxer. Return to emergency department if any alarming signs or symptoms occur. Prescriptions: Cyclobenzaprine [Flexeril] 10 mg PO TID #20 tab Ibuprofen [Motrin] 600 mg PO Q8HR PRN #20 tab PRN Reason: Pain Is patient prescribed a controlled substance at d/c from ED?: No Referrals: Frank Ramos DO [Primary Care Provider] - 1-2 days Time of Disposition: 09:22
[2018-03-14] MEDS ORDERED: ORPHENADRINE 30 MG/ML 2 ML VIAL IVP STA (08:25)
[2018-03-14] MEDS ORDERED: KETOROLAC 30 MG/ML 1 ML VIAL IVP STA (08:25)
--- NOTE | 2018-03-14 09:10 | XR ---
EXAMINATION TYPE: XR Hip RT and AP Pelvis , 3 VIEWS DATE OF EXAM ORDERED: 03/14/2018 HISTORY: Pain. COMPARISON: None. FINDINGS: Osseous structures about the pelvis are normal. No fracture or dislocation is seen. The ri ght hip has a normal appearance. IMPRESSION: NO ACUTE OSSEOUS LESION.
--- NOTE | 2018-03-14 09:12 | XR ---
EXAMINATION TYPE: XR lumbar spine 2 or 3V , 3 VIEWS DATE OF EXAM ORDERED: 03/14/2018 HISTORY: Pain. COMPARISON: None. FINDINGS: There is a mild levoscoliosis. Vertebral body height and alignment are maintained. There is no spondylolysis or spondylolisthesis. N o fractures are seen. The pedicles are intact. IMPRESSION: NO ACUTE OSSEOUS LESION.
[2018-03-14 09:49] VITALS: BP 101/54; PULSE 60; RESP 16; TEMP 98.1
== END 2018-03-14 09:49 | disposition home or self-care (01) ==
LOC: EC 07:39
DX: S46.912A Strain of unspecified muscle, fascia and tendon at shoulder and upper arm level, left arm, initial encounter (principal); S70.01XA Contusion of right hip, initial encounter; M41.86 Other forms of scoliosis, lumbar region; F17.200 Nicotine dependence, unspecified, uncomplicated; Z79.899 Other long term (current) drug therapy; Z86.79 Personal history of other diseases of the circulatory system; W17.89XA Other fall from one level to another, initial encounter
CPT/HCPCS: 72100; 73502; 99284; 96374; 96375; J2360; J1885

== ENCOUNTER 2018-06-05 17:35 | Emergency (ER) | payer BC ==
[2018-06-05] MEDS ORDERED: SODIUM CHLORIDE 0.9% 1,000 ML IV STA (18:11)
--- NOTE | 2018-06-05 18:25 | ED ---
General Adult HPI - General Chief complaint: Abdominal Pain Stated complaint: Cyst on ovary, abd pain and back pain Source: patient, RN notes reviewed Mode of arrival: ambulatory Limitations: no limitations - History of Present Illness Initial comments: 32-year-old female patient with past history of ovarian cyst presents to ER with approximately 3 weeks of left adnexal pain, now abdominal pain. Patient states that she is evaluated by Dr. Sales approximately 3 weeks ago because she is having left adnexal pain. A transvaginal ultrasound was performed, displaying an approximately 6 cm cyst on her left ovary per the patient. Patient was started on oral contraceptives, scheduled for a follow-up ultrasound in 6 weeks. Patient states that over the past 3 weeks the pain in her left adnexal region has been progressively worse, patient now has pain in her left lower quadrant, suprapubic region, lumbar back. Patient states that these are not normal for patient. Patient denies dysuria, vaginal bleeding, chest pain, shortness of breath, fever chills, nausea vomiting diarrhea. Patient does not believe that she is , has been on OCPs for 2 weeks. Patient denies other complaints. Patient denies recent falls or trauma. Systemic: Pt denies fatigue, myalgia, fever/chills, rash. Pt denies weakness, night sweats, weight loss. Neuro: Pt denies headache, visual disturbances, syncope or pre-syncope. HEENT: Pt denies ocular discharge or irritation, otalgia, rhinorrhea, pharyngitis or notable lymphadenopathy. Cardiopulmonary: Pt denies chest pain, SOB, heart palpitations, dyspnea on exertion. Abdominal/GI: Pt denies n/v/d. : Pt denies dysuria, burning w/ urination, frequency/urgency. Denies new onset urinary or bowel incontinence. MSK: Pt denies myalgia, loss of strength or function in extremities. Neuro: Pt denies new onset weakness, paresthesias. - Related Data Home Medications Medication Instructions Recorded Confirmed Flecainide [Tambocor] 50 mg PO BID PRN 03/14/17 06/05/18 Blisovi Fe 07/19 1 tab PO HS 06/05/18 06/05/18 Allergies Allergy/AdvReac Type Severity Reaction Status Date / Time No Known Allergies Allergy Verified 06/05/18 19:23 Review of Systems ROS Statement: Those systems with pertinent positive or pertinent negative responses have been documented in the HPI. ROS Other: All systems not noted in ROS Statement are negative. 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 Ovarian cyst lt side. History of Any Multi-Drug Resistant Organisms: None Reported Past Surgical History: Cardiac Ablation, Orthopedic Surgery Additional Past Surgical History / Comment(s): 2016 EPS with cardiac ablation, R knee arthroscopy, colonoscopy. Past Anesthesia/Blood Transfusion Reactions: Previous Problems w/ Anesthesia, Postoperative Nausea & Vomiting (PONV) Additional Past Anesthesia/Blood Transfusion Reaction / Comment(s): Pt had routine colonoscopy and per pt, she went bradycardic and was told they had a hard time bringing her heart rate up, and difficult to wake up post op. Past Psychological History: No Psychological Hx Reported Smoking Status: Current some day smoker Past Alcohol Use History: Occasional Past Drug Use History: None Reported - Past Family History Sister(s) Additional Family Medical History / Comment(s): POTS (POSTURAL ORTHOSTATIC TACHY SYNDROM) Mother Additional Family Medical History / Comment(s): Mother "never goes to the doctor." Grandmother and 2 uncles on mother's side have cardiac valve disease and grandmother also had CABG Father Family Medical History: Vascular Disorder Additional Family Medical History / Comment(s): Father had aneurysm behind his knee. General Exam - General Exam Comments Initial Comments: Constitutional: NAD, AOX3, Pt has pleasant affect. HEENT: NC/AT, trachea midline, neck supple, no lymphadenopathy. Posterior pharynx non erythematous, without exudates. External ears appear normal, without discharge. Mucous membranes moist. Eyes PERRLA, EOM intact. There is no scleral icterus. No pallor noted. Cardiopulmonary: RRR, no murmurs, rubs or gallops, no JVD noted. Lungs CTAB in anterior and posterior galdamez. No peripheral edema. Abdominal exam: Abdomen soft and non-distended. Abdomen left lower quadrant mildly tender to palpation, abdomen suprapubic region mildly tender to palpation , abdomen left upper quadrant mildly tender to palpation. Bowel sounds active in LLQ. No hepatosplenomegaly. No ecchymosis No rebound tenderness. Neuro: CN II-XII grossly intact. No nuchal rigidity. MSK: No posterior calf tenderness bilaterally, homans sign negative bilaterally. Posterior tibialis and radial pulse +2 bilaterally. Paralumbar region mildly tender to palpation, reproducible, patient states this is the pain she has been experiencing. Limitations: no limitations Course Vital Signs 06/05/18 06/05/18 17:38 21:15 Temperature 97.3 F L 98.3 F Pulse Rate 63 69 Respiratory 20 16 Rate Blood Pressure 121/83 108/71 O2 Sat by Pulse 99 99 Oximetry Medical Decision Making - Medical Decision Making 32-year-old female patient with past history of ovarian cyst presents to ER with approximately 3 weeks of left adnexal pain, now abdominal pain. Patient states that she is evaluated by Dr. Sales approximately 3 weeks ago because she is having left adnexal pain. A transvaginal ultrasound was performed, displaying an approximately 6 cm cyst on her left ovary per the patient. Patient was started on oral contraceptives, scheduled for a follow-up ultrasound in 6 weeks. Patient states that over the past 3 weeks the pain in her left adnexal region has been progressively worse, patient now has pain in her left lower quadrant, suprapubic region, lumbar back. Abdominal exam displayed - Abdomen left lower quadrant mildly tender to palpation, abdomen suprapubic region mildly tender to palpation, abdomen left upper quadrant mildly tender to palpation. No other acute pathology on physical exam. Laboratory investigations including CMP, CBC, UA were nonimmpressive. CT of abdomen and pelvis displayed pelvic varices possibly. A transvaginal ultrasound displayed a smaller cysts been previously. Findings explained to patient at length. Patient to follow up with her [employer]FER[employer] Dr. Sales in 1-2 days. Patient to follow up with primary care physician in one to 2 days. Patient to return to ED if any symptoms develop including worsening pain, nausea vomiting diarrhea, new pain, chest pain, short breath, any other symptoms. Case discussed with Dr. Simon. - Lab Data Result diagrams: 06/05/18 18:36 06/05/18 18:36 Lab Results 06/05/18 06/05/18 06/05/18 Range/Units 18:20 18:20 18:36 WBC 7.3 (3.8-10.6) k/uL RBC 4.27 (3.80-5.40) m/uL Hgb 13.7 (11.4-16.0) gm/dL Hct 41.1 (34.0-46.0) % MCV 96.3 (80.0-100.0) fL MCH 32.2 (25.0-35.0) pg MCHC 33.5 (31.0-37.0) g/dL RDW 12.1 (11.5-15.5) % Plt Count 270 (150-450) k/uL Neutrophils % 61 % Lymphocytes % 31 % Monocytes % 5 % Eosinophils % 1 % Basophils % 0 % Neutrophils # 4.4 (1.3-7.7) k/uL Lymphocytes # 2.3 (1.0-4.8) k/uL Monocytes # 0.4 (0-1.0) k/uL Eosinophils # 0.1 (0-0.7) k/uL Basophils # 0.0 (0-0.2) k/uL Sodium (137-145) mmol/L Potassium (3.5-5.1) mmol/L Chloride (98-107) mmol/L Carbon Dioxide (22-30) mmol/L Anion Gap mmol/L BUN (7-17) mg/dL Creatinine (0.52-1.04) mg/dL Est GFR (CKD-EPI)AfAm (>60 ml/min/1.73 sqM) Est GFR (CKD-EPI)NonAf (>60 ml/min/1.73 sqM) Glucose (74-99) mg/dL Calcium (8.4-10.2) mg/dL Total Bilirubin (0.2-1.3) mg/dL AST (14-36) U/L ALT (9-52) U/L Alkaline Phosphatase (38-126) U/L Total Protein (6.3-8.2) g/dL Albumin (3.5-5.0) g/dL Lipase (23-300) U/L Urine Color Light Yellow Urine Appearance Clear (Clear) Urine pH 6.5 (5.0-8.0) Ur Specific Adamant 1.005 (1.001-1.035) Urine Protein Negative (Negative) Urine Glucose (UA) Negative (Negative) Urine Ketones Negative (Negative) Urine Blood Negative (Negative) Urine Nitrite Negative (Negative) Urine Bilirubin Negative (Negative) Urine Urobilinogen <2.0 (<2.0) mg/dL Ur Leukocyte Esterase Negative (Negative) Urine HCG, Qual Not Detected (Not Detectd) 06/05/18 Range/Units 18:36 WBC (3.8-10.6) k/uL RBC (3.80-5.40) m/uL Hgb (11.4-16.0) gm/dL Hct (34.0-46.0) % MCV (80.0-100.0) fL MCH (25.0-35.0) pg MCHC (31.0-37.0) g/dL RDW (11.5-15.5) % Plt Count (150-450) k/uL Neutrophils % % Lymphocytes % % Monocytes % % Eosinophils % % Basophils % % Neutrophils # (1.3-7.7) k/uL Lymphocytes # (1.0-4.8) k/uL Monocytes # (0-1.0) k/uL Eosinophils # (0-0.7) k/uL Basophils # (0-0.2) k/uL Sodium 141 (137-145) mmol/L Potassium 4.4 (3.5-5.1) mmol/L Chloride 107 (98-107) mmol/L Carbon Dioxide 24 (22-30) mmol/L Anion Gap 10 mmol/L BUN 11 (7-17) mg/dL Creatinine 0.67 (0.52-1.04) mg/dL Est GFR (CKD-EPI)AfAm >90 (>60 ml/min/1.73 sqM) Est GFR (CKD-EPI)NonAf >90 (>60 ml/min/1.73 sqM) Glucose 92 (74-99) mg/dL Calcium 9.5 (8.4-10.2) mg/dL Total Bilirubin 0.4 (0.2-1.3) mg/dL AST 24 (14-36) U/L ALT 30 (9-52) U/L Alkaline Phosphatase 41 (38-126) U/L Total Protein 7.3 (6.3-8.2) g/dL Albumin 4.5 (3.5-5.0) g/dL Lipase 49 (23-300) U/L Urine Color Urine Appearance (Clear) Urine pH (5.0-8.0) Ur Specific Adamant (1.001-1.035) Urine Protein (Negative) Urine Glucose (UA) (Negative) Urine Ketones (Negative) Urine Blood (Negative) Urine Nitrite (Negative) Urine Bilirubin (Negative) Urine Urobilinogen (<2.0) mg/dL Ur Leukocyte Esterase (Negative) Urine HCG, Qual (Not Detectd) Disposition Clinical Impression: Pelvic congestion syndrome Disposition: HOME SELF-CARE Condition: Good Instructions: Pelvic Pain in Women (ED) Additional Instructions: Patient to adhere to previously discussed treatment plan and will take medication(s) as directed. Patient to follow up with PCP in 1-2 days. Patient to return to ED if symptoms do not improve. Is patient prescribed a controlled substance at d/c from ED?: No Referrals: Frank Ramos DO [Primary Care Provider] - 1-2 days Alexander Sales MD [STAFF PHYSICIAN] - 1-2 days Time of Disposition: 20:25
[2018-06-05 19:02] LABS: Basophils % (A) 0 %; Eosinophils # (A) 0.1 k/uL (0-0.7); Eosinophils % (A) 1 %; HCT 41.1 % (34.0-46.0); HGB 13.7 gm/dL (11.4-16.0); Lymphocytes # (A) 2.3 k/uL (1.0-4.8); Lymphocytes % (A) 31 %; MCH 32.2 pg (25.0-35.0); MCHC 33.5 g/dL (31.0-37.0); MCV 96.3 fL (80.0-100.0); Mean Platelet Volume 7.3; Monocytes # (A) 0.4 k/uL (0-1.0); Monocytes % (A) 5 %; Neutrophils # (A) 4.4 k/uL (1.3-7.7); Neutrophils % (A) 61 %; Platelet Count 270 k/uL (150-450); RBC 4.27 m/uL (3.80-5.40); RDW 12.1 % (11.5-15.5); WBC 7.3 k/uL (3.8-10.6)
[2018-06-05 19:06] LABS: Appearance,Urine Clear (Clear); Bilirubin,Urine Negative (Negative); Blood,Urine Negative (Negative); Color,Urine Light Yellow; Glucose,Urine (UA) Negative (Negative); Ketones,Urine Negative (Negative); Leukocyte Esterase,Urine Negative (Negative); Nitrite,Urine Negative (Negative); PH, Urine 6.5 (5.0-8.0); Protein,Urine Negative (Negative); Specific Gravity,Urine 1.005 (1.001-1.035); Urobilinogen,Urine <2.0 mg/dL (<2.0)
[2018-06-05 19:13] LABS: ALT 30 U/L (9-52); AST 24 U/L (14-36); Albumin 4.5 g/dL (3.5-5.0); Alkaline Phosphatase 41 U/L (38-126); Anion Gap 10 mmol/L; Blood Urea Nitrogen 11 mg/dL (7-17); Calcium 9.5 mg/dL (8.4-10.2); Carbon Dioxide 24 mmol/L (22-30); Chloride 107 mmol/L (98-107); Glucose 92 mg/dL (74-99); Lipase 49 U/L (23-300); Potassium 4.4 mmol/L (3.5-5.1); Sodium 141 mmol/L (137-145); Total Bilirubin 0.4 mg/dL (0.2-1.3); Total Protein 7.3 g/dL (6.3-8.2)
--- NOTE | 2018-06-05 19:21 | US ---
EXAMINATION TYPE: US transvaginal DATE OF EXAM: 06/05/2018 COMPARISON: NONE CLINICAL HISTORY: pain, hx pelvic cyst. TECHNIQUE: Transvaginal (TV). Date of LMP: irregular cycles EXAM MEASUREMENTS: Uterus: 7.4 x 4.5 x 5.6 cm Endometrial Stripe: 1.0 cm Right Ovary: 2.6 x 1.8 x 3.1 cm Left Ovary: 2.9 x 2.2 x 1.3 cm 1. Uterus: Retroverted wnl 2. Endometrium: measures 1.0 cm, patient states her cycles have not been regular 3. Right Ovary: wnl 4. Left Ovary: 2.2 x 1.5 x 1.9 cm cystic area with thick rind Spectral, color and waveform doppler imaging shows good arterial and venous flow within the ovaries ; there is no evidence for ovarian torsion. 5. Bilateral Adnexa: wnl 6. Posterior cul-de-sac: small amount of free fluid IMPRESSION: Tiny amount of free fluid in the cul-de-sac. Irregular left ovary cyst. No solid adnexal mass. No evidence of ovarian torsion.
--- NOTE | 2018-06-05 19:39 | CT ---
EXAMINATION TYPE: CT abdomen pelvis w con DATE OF EXAM: 06/05/2018 COMPARISON: 04/22/2011 HISTORY: Left side abdominal and back pain. CT DLP: 553.8 mGycm Automated exposure control for dose reduction was used. TECHNIQUE: Helical acquisition of images was performed from the lung bases through the pelvis. CONTRAST: Performed without Oral Contrast and with IV Contrast, patient injected with 100ml mL of Isovue 300. FINDINGS: Lung bases are clear. There is no pleural effusion. Heart size is normal. There is no pericardial eff usion. Liver spleen pancreas gallbladder appear normal. Bile ducts are not dilated. There is no adren al mass. Kidneys show satisfactory contrast opacification. There is no hydronephrosis. Ureters are no t dilated. There is no retroperitoneal adenopathy. Bladder distends smoothly. There is no inguinal he rnia. There is no free fluid in the pelvis. Uterus is retroverted. Lumbar vertebra appear intact. Bon y pelvis is intact. There are some varicose veins in the pelvis on the left side more than the right. There is no mesenteric edema or adenopathy. Appendix is not definitely seen. There is no sign of a th ickened appendix. IMPRESSION: Pelvic varices. These appear new compared to old CT scan. This could be possible cause for left-sided pain.
[2018-06-05 21:15] VITALS: BP 108/71; PULSE 69; RESP 16; TEMP 98.3
== END 2018-06-05 21:16 | disposition home or self-care (01) ==
LOC: EC 17:35
DX: N94.89 Other specified conditions associated with female genital organs and menstrual cycle (principal); N83.202 Unspecified ovarian cyst, left side; M54.5 Low back pain; F17.200 Nicotine dependence, unspecified, uncomplicated; Z79.3 Long term (current) use of hormonal contraceptives
CPT/HCPCS: 36415; 80053; 83690; 85025; 81003; 81025; 76830; 74177; 99284; 96360; 96361 ×2; Q9967

== ENCOUNTER 2020-11-20 09:32 | Emergency (ER) | payer BC ==
[2020-11-20 09:37] VITALS: TEMP 97.6
[2020-11-20] MEDS ORDERED: SODIUM CHLORIDE 0.9% 500 ML 500 ML IV ONE (10:07)
[2020-11-20 10:36] LABS: Basophils % (A) 0 %; Eosinophils # (A) 0.1 k/uL (0-0.7); Eosinophils % (A) 2 %; HGB 14.5 gm/dL (11.4-16.0); Lymphocytes # (A) 1.4 k/uL (1.0-4.8); Lymphocytes % (A) 25 %; MCHC 34.4 g/dL (31.0-37.0); MCV 95.7 fL (80.0-100.0); Monocytes # (A) 0.3 k/uL (0-1.0); Monocytes % (A) 6 %; Neutrophils # (A) 3.7 k/uL (1.3-7.7); Neutrophils % (A) 66 %; Platelet Count 279 k/uL (150-450); RBC 4.39 m/uL (3.80-5.40); RDW 11.6 % (11.5-15.5); WBC 5.6 k/uL (3.8-10.6)
[2020-11-20 10:43] LABS: ALT 26 U/L (4-34); AST 31 U/L (14-36); African American GFR (CKD) >90 (>60 ml/min/1.73 sqM); Albumin 4.7 g/dL (3.5-5.0); Alkaline Phosphatase 40 U/L (38-126); Anion Gap 7 mmol/L; Blood Urea Nitrogen 10 mg/dL (7-17); Calcium 9.3 mg/dL (8.4-10.2); Carbon Dioxide 28 mmol/L (22-30); Chloride 105 mmol/L (98-107); Glucose 99 mg/dL (74-99); Non-African American GFR(CKD) >90 (>60 ml/min/1.73 sqM); Potassium 4.5 mmol/L (3.5-5.1); Sodium 140 mmol/L (137-145); Total Bilirubin 0.7 mg/dL (0.2-1.3); Total Protein 6.8 g/dL (6.3-8.2)
[2020-11-20 10:47] LABS: INR 0.9 (<1.2); Partial Thromboplastin Time 24.2 sec (22.0-30.0)
--- NOTE | 2020-11-20 11:15 | US ---
EXAMINATION TYPE: US transvaginal DATE OF EXAM: 11/20/2020 COMPARISON: CT abdomen ultrasound June 05, 2018 CLINICAL HISTORY: heavy bleeding. heavy bleeding with clots today, cramping TECHNIQUE: Transvaginal (TV). Date of LMP: 10/31/20 EXAM MEASUREMENTS: Uterus: 8.8 x 4.4 x 5.8 cm Endometrial Stripe: 1.3 cm Right Ovary: 3.1 x 2.3 x 2.4 cm Left Ovary: 2.5 x 1.3 x 2.2 cm 1. Uterus: Anteverted heterogeneous 2. Endometrium: appears wnl 3. Right Ovary: follicles noted 4. Left Ovary: follicles noted Spectral, color and waveform doppler imaging shows good arterial and venous flow within the ovaries ; . 5. Bilateral Adnexa: appears wnl 6. Posterior cul-de-sac: wnl Heterogeneous slightly retroflexed uterus redemonstrated. Endometrial stripe not well visualized but measures upper limits of normal for secretory phase of menstrual cycle. No free fluid. Both ovaries seen and symmetric and normal in size. No concerning adnexal masses. IMPRESSION: Unremarkable study.
[2020-11-20 11:18] VITALS: BP 101/64
--- NOTE | 2020-11-20 11:25 | ED ---
Female Urogenital HPI - General Chief complaint: Vaginal Bleeding Stated complaint: Female Time Seen by Provider: 11/20/20 09:43 Source: patient Mode of arrival: wheelchair Limitations: no limitations - History of Present Illness Initial comments: 35-year-old female presenting to the ER today for chief complaint vaginal bleeding that began today. Patient states that she began bleeding this morning very heavily she states she woke up with blood around her. Patient states that she had her period approximately 20 days ago. Patient states she has cramping as though this is a period. Patient denies severe pain she denies . She denies unilateral lower pelvic pain. Patient denies nausea, vomiting, diarrhea, fevers, upper abdominal pain, chest pain, dyspnea. pt denies sex within last 10 days. denies inserting foreign bodies into her vagina. patient has no additional complaints. Upon arrival pt appears nontoxic in no acute distress, BP stable and she is not tachycardic. Last Menstrual Period: 10/31/20 - Related Data Home Medications Medication Instructions Recorded Confirmed Flecainide [Tambocor] 50 mg PO BID PRN 03/14/17 06/05/18 Blisovi Fe 07/19 1 tab PO HS 06/05/18 06/05/18 Allergies Allergy/AdvReac Type Severity Reaction Status Date / Time No Known Allergies Allergy Verified 11/20/20 09:37 Review of Systems ROS Statement: Those systems with pertinent positive or pertinent negative responses have been documented in the HPI. ROS Other: All systems not noted in ROS Statement are negative. 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 Ovarian cyst lt side. History of Any Multi-Drug Resistant Organisms: None Reported Past Surgical History: Cardiac Ablation, Orthopedic Surgery Additional Past Surgical History / Comment(s): 2016 EPS with cardiac ablation, R knee arthroscopy, colonoscopy. Past Anesthesia/Blood Transfusion Reactions: Previous Problems w/ Anesthesia, Postoperative Nausea & Vomiting (PONV) Additional Past Anesthesia/Blood Transfusion Reaction / Comment(s): Pt had routine colonoscopy and per pt, she went bradycardic and was told they had a hard time bringing her heart rate up, and difficult to wake up post op. Past Psychological History: No Psychological Hx Reported Smoking Status: Current every day smoker Past Alcohol Use History: Occasional Past Drug Use History: None Reported - Past Family History Sister(s) Additional Family Medical History / Comment(s): POTS (POSTURAL ORTHOSTATIC TACHY SYNDROM) Mother Additional Family Medical History / Comment(s): Mother "never goes to the doctor." Grandmother and 2 uncles on mother's side have cardiac valve disease and grandmother also had CABG Father Family Medical History: Vascular Disorder Additional Family Medical History / Comment(s): Father had aneurysm behind his knee. General Exam - General Exam Comments Initial Comments: General: The patient is awake and alert, in no distress Eye: +3 mm pupils are equal, round and reactive to light, extra-ocular movements are intact. No nystagmus. There is normal conjunctiva bilaterally. No signs of icterus. Ears, nose, mouth and throat: There are moist mucous membranes and no oral lesions. Neck: The neck is supple, there is no tenderness or JVD. Cardiovascular: There is a regular rate and rhythm. No murmur, rub or gallop is appreciated. Respiratory: Lungs are clear to auscultation, respirations are non-labored, breath sounds are equal. No wheezes, stridor, rales, or rhonchi. Gastrointestinal: [Soft, non-distended, non-tender abdomen without masses or organomegaly noted. There is no rebound or guarding present. : Vaginal bleeding moderate, dark clots. no hemorrhage no laceration, os opened. no discharge. no cervical motion tenderness/odors. no adnexal tenderness. Musculoskeletal: Normal ROM, no tenderness. Strength 5/5. Sensation intact. Radial and DP pulses equal bilaterally 2+. Neurological: A&O x 3. CN II-XII intact, There are no obvious motor or sensory deficits. Coordination appears grossly intact. Speech is normal. Skin: Skin is warm and dry and no rashes or lesions are noted. Psychiatric: Cooperative, appropriate mood & affect, normal judgment. Limitations: no limitations Course Vital Signs 11/20/20 11/20/20 09:32 11:15 Temperature 97.6 F Pulse Rate 100 61 Respiratory 18 18 Rate Blood Pressure 110/76 101/64 O2 Sat by Pulse 98 98 Oximetry Medical Decision Making - Medical Decision Making Labs and HgB stable. pt HR is stable as well as BP. second pelvic bleeding seemed to slow. pt hcg (-). pt will be discharged wtih ob f/u. repeat labs in two days recommended by pcp and return for persistent > 2 days or worsening bleeding or pain. patient agreeable to care plan as well as attending Dr Cade' - Lab Data Result diagrams: 11/20/20 10:15 11/20/20 10:15 Lab Results 11/20/20 11/20/20 11/20/20 Range/Units 10:15 10:15 10:15 WBC 5.6 (3.8-10.6) k/uL RBC 4.39 (3.80-5.40) m/uL Hgb 14.5 (11.4-16.0) gm/dL Hct 42.0 (34.0-46.0) % MCV 95.7 (80.0-100.0) fL MCH 33.0 (25.0-35.0) pg MCHC 34.4 (31.0-37.0) g/dL RDW 11.6 (11.5-15.5) % Plt Count 279 (150-450) k/uL MPV 7.0 Neutrophils % 66 % Lymphocytes % 25 % Monocytes % 6 % Eosinophils % 2 % Basophils % 0 % Neutrophils # 3.7 (1.3-7.7) k/uL Lymphocytes # 1.4 (1.0-4.8) k/uL Monocytes # 0.3 (0-1.0) k/uL Eosinophils # 0.1 (0-0.7) k/uL Basophils # 0.0 (0-0.2) k/uL PT 10.0 (9.0-12.0) sec INR 0.9 (<1.2) APTT 24.2 (22.0-30.0) sec Sodium (137-145) mmol/L Potassium (3.5-5.1) mmol/L Chloride (98-107) mmol/L Carbon Dioxide (22-30) mmol/L Anion Gap mmol/L BUN (7-17) mg/dL Creatinine (0.52-1.04) mg/dL Est GFR (CKD-EPI)AfAm (>60 ml/min/1.73 sqM) Est GFR (CKD-EPI)NonAf (>60 ml/min/1.73 sqM) Glucose (74-99) mg/dL Calcium (8.4-10.2) mg/dL Total Bilirubin (0.2-1.3) mg/dL AST (14-36) U/L ALT (4-34) U/L Alkaline Phosphatase (38-126) U/L Total Protein (6.3-8.2) g/dL Albumin (3.5-5.0) g/dL Urine HCG, Qual Not Detected (Not Detectd) Blood Type Blood Type Recheck Bld Type Recheck Status Antibody Screen Spec Expiration Date 11/20/20 11/20/20 Range/Units 10:15 10:15 WBC (3.8-10.6) k/uL RBC (3.80-5.40) m/uL Hgb (11.4-16.0) gm/dL Hct (34.0-46.0) % MCV (80.0-100.0) fL MCH (25.0-35.0) pg MCHC (31.0-37.0) g/dL RDW (11.5-15.5) % Plt Count (150-450) k/uL MPV Neutrophils % % Lymphocytes % % Monocytes % % Eosinophils % % Basophils % % Neutrophils # (1.3-7.7) k/uL Lymphocytes # (1.0-4.8) k/uL Monocytes # (0-1.0) k/uL Eosinophils # (0-0.7) k/uL Basophils # (0-0.2) k/uL PT (9.0-12.0) sec INR (<1.2) APTT (22.0-30.0) sec Sodium 140 (137-145) mmol/L Potassium 4.5 (3.5-5.1) mmol/L Chloride 105 (98-107) mmol/L Carbon Dioxide 28 (22-30) mmol/L Anion Gap 7 mmol/L BUN 10 (7-17) mg/dL Creatinine 0.64 (0.52-1.04) mg/dL Est GFR (CKD-EPI)AfAm >90 (>60 ml/min/1.73 sqM) Est GFR (CKD-EPI)NonAf >90 (>60 ml/min/1.73 sqM) Glucose 99 (74-99) mg/dL Calcium 9.3 (8.4-10.2) mg/dL Total Bilirubin 0.7 (0.2-1.3) mg/dL AST 31 (14-36) U/L ALT 26 (4-34) U/L Alkaline Phosphatase 40 (38-126) U/L Total Protein 6.8 (6.3-8.2) g/dL Albumin 4.7 (3.5-5.0) g/dL Urine HCG, Qual (Not Detectd) Blood Type A Negative Blood Type Recheck A Neg Bld Type Recheck Status No Antibody Screen NEGATIVE Spec Expiration Date 11/23/20202314 Disposition Clinical Impression: Dysfunctional uterine bleeding Disposition: HOME SELF-CARE Condition: Good Instructions (If sedation given, give patient instructions): Dysfunctional Uterine Bleeding (ED) Additional Instructions: Please use medication as discussed. Please follow-up with family doctor in the next 2 days, recommend repeat HCG, recommend OBGYN follow-up in next 2-3 days, Return to ER if you feel lightheaded or bleeidng persists for another 2 days. Please return to emergency room if the symptoms increase or worsen or for any other concerns. Is patient prescribed a controlled substance at d/c from ED?: No Referrals: Ferny Jon MD [Primary Care Provider] - 1-2 days Alexander Sales MD [STAFF PHYSICIAN] - 1-2 days Time of Disposition: 11:46
[2020-11-20 12:10] VITALS: PULSE 74
[2020-11-20 12:16] VITALS: RESP 20
== END 2020-11-20 12:17 | disposition home or self-care (01) ==
LOC: EC 09:32
DX: N93.8 Other specified abnormal uterine and vaginal bleeding (principal); F17.200 Nicotine dependence, unspecified, uncomplicated
CPT/HCPCS: 36415; 76830; 80053; 81025; 85025; 85610; 85730; 86850; 86900; 86901; 93975; 99284

== ENCOUNTER 2021-08-27 12:43 | Emergency (ER) | payer BC ==
[2021-08-27 12:50] VITALS: RESP 18; TEMP 98
[2021-08-27] MEDS ORDERED: SODIUM CHLORIDE 0.9% 2,000 ML IV STA (13:03)
[2021-08-27] MEDS ORDERED: ONDANSETRON 4 MG/2 ML VIAL IVP STA (13:03)
[2021-08-27] MEDS ORDERED: FAMOTIDINE 20 MG/2 ML VIAL IV STA (13:04)
[2021-08-27] MEDS ORDERED: KETOROLAC 15 MG/ML 1 ML VIAL IVP STA (13:04)
[2021-08-27 13:45] LABS: Basophils % (A) 0 %; Eosinophils % (A) 1 %; HCT 40.6 % (34.0-46.0); HGB 13.9 gm/dL (11.4-16.0); Lymphocytes # (A) 1.2 k/uL (1.0-4.8); Lymphocytes % (A) 41 %; MCH 33.5 pg (25.0-35.0); MCHC 34.2 g/dL (31.0-37.0); MCV 98.1 fL (80.0-100.0); Mean Platelet Volume 7.7; Monocytes # (A) 0.2 k/uL (0-1.0); Monocytes % (A) 7 %; Neutrophils # (A) 1.4 k/uL (1.3-7.7); Neutrophils % (A) 48 %; Platelet Count 183 k/uL (150-450); RBC 4.14 m/uL (3.80-5.40); WBC 2.9 k/uL (3.8-10.6)
--- NOTE | 2021-08-27 13:47 | ED ---
General Adult HPI - General Chief complaint: Nausea/Vomiting/Diarrhea Stated complaint: N/V/D, SOB Time Seen by Provider: 08/27/21 12:51 Source: patient, family, RN notes reviewed Mode of arrival: ambulatory Limitations: no limitations - History of Present Illness Initial comments: This a 36-year-old female presents emergency Department chief complaint nausea vomiting diarrhea. Patient states she feels very weak, dehydrated. Patient states symptoms have been present for 1 week. She does state there has been tested positive for cocaine 18. Patient was seen out patient did have swallow but states that she did not results. She was sent over here for further evaluation. Patient denies any chest pain she occasionally feels like she cannot catch her breath denies any current shortness breath. She has no localized abdominal pain. Denies any leg pain or leg swelling she does admit to fevers chills and cold sweats. - Related Data Previous Rx's Medication Instructions Recorded Ketorolac [Toradol] 10 mg PO Q8HR #15 tab 08/27/21 Ondansetron Odt [Zofran Odt] 4 mg PO Q8HR PRN #14 tab 08/27/21 Allergies Allergy/AdvReac Type Severity Reaction Status Date / Time No Known Allergies Allergy Verified 08/27/21 13:49 Review of Systems ROS Statement: Those systems with pertinent positive or pertinent negative responses have been documented in the HPI. ROS Other: All systems not noted in ROS Statement are negative. 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 Ovarian cyst lt side. History of Any Multi-Drug Resistant Organisms: None Reported Past Surgical History: Cardiac Ablation, Orthopedic Surgery Additional Past Surgical History / Comment(s): 2016 EPS with cardiac ablation, R knee arthroscopy, colonoscopy. Past Anesthesia/Blood Transfusion Reactions: Previous Problems w/ Anesthesia, Postoperative Nausea & Vomiting (PONV) Additional Past Anesthesia/Blood Transfusion Reaction / Comment(s): Pt had routine colonoscopy and per pt, she went bradycardic and was told they had a hard time bringing her heart rate up, and difficult to wake up post op. Past Psychological History: No Psychological Hx Reported Smoking Status: Current every day smoker Past Alcohol Use History: Occasional Past Drug Use History: None Reported - Past Family History Sister(s) Additional Family Medical History / Comment(s): POTS (POSTURAL ORTHOSTATIC TACHY SYNDROM) Mother Additional Family Medical History / Comment(s): Mother "never goes to the doctor." Grandmother and 2 uncles on mother's side have cardiac valve disease and grandmother also had CABG Father Family Medical History: Vascular Disorder Additional Family Medical History / Comment(s): Father had aneurysm behind his knee. General Exam Limitations: no limitations General appearance: alert, in no apparent distress Head exam: Present: atraumatic, normocephalic, normal inspection Eye exam: Present: normal appearance, PERRL, EOMI. Absent: scleral icterus, conjunctival injection, periorbital swelling ENT exam: Present: normal exam, normal oropharynx, mucous membranes moist Neck exam: Present: normal inspection, full ROM. Absent: tenderness, meningismus, lymphadenopathy Respiratory exam: Present: normal lung sounds bilaterally. Absent: respiratory distress, wheezes, rales, rhonchi, stridor Cardiovascular Exam: Present: regular rate, normal rhythm, normal heart sounds. Absent: systolic murmur, diastolic murmur, rubs, gallop, clicks GI/Abdominal exam: Present: soft, normal bowel sounds. Absent: distended, tenderness, guarding, rebound, rigid Back exam: Absent: CVA tenderness (R), CVA tenderness (L) Neurological exam: Present: alert, oriented X3 Skin exam: Present: warm, dry, intact, normal color. Absent: rash Course Vital Signs 08/27/21 12:47 Temperature 98 F Pulse Rate 67 Respiratory 18 Rate Blood Pressure 109/63 O2 Sat by Pulse 99 Oximetry Medical Decision Making - Medical Decision Making 36-year-old presented for nausea vomiting diarrhea. Patient greatly improved after IV fluids and antiemetics. Patient tested positive for COVID-19. Patient will be discharged in stable condition return parameters were discussed. - Lab Data Result diagrams: 08/27/21 13:28 08/27/21 13: Lab Results 08/27/21 08/27/21 08/27/21 Range/Units 13:28 13:28 13:28 WBC 2.9 L (3.8-10.6) k/uL RBC 4.14 (3.80-5.40) m/uL Hgb 13.9 (11.4-16.0) gm/dL Hct 40.6 (34.0-46.0) % MCV 98.1 (80.0-100.0) fL MCH 33.5 (25.0-35.0) pg MCHC 34.2 (31.0-37.0) g/dL RDW 12.0 (11.5-15.5) % Plt Count 183 (150-450) k/uL MPV 7.7 Neutrophils % 48 % Lymphocytes % 41 % Monocytes % 7 % Eosinophils % 1 % Basophils % 0 % Neutrophils # 1.4 (1.3-7.7) k/uL Lymphocytes # 1.2 (1.0-4.8) k/uL Monocytes # 0.2 (0-1.0) k/uL Eosinophils # 0.0 (0-0.7) k/uL Basophils # 0.0 (0-0.2) k/uL Sodium 137 (137-145) mmol/L Potassium 4.3 (3.5-5.1) mmol/L Chloride 104 (98-107) mmol/L Carbon Dioxide 25 (22-30) mmol/L Anion Gap 8 mmol/L BUN 12 (7-17) mg/dL Creatinine 0.52 (0.52-1.04) mg/dL Est GFR (CKD-EPI)AfAm >90 (>60 ml/min/1.73 sqM) Est GFR (CKD-EPI)NonAf >90 (>60 ml/min/1.73 sqM) Glucose 108 H (74-99) mg/dL Calcium 8.3 L (8.4-10.2) mg/dL Total Bilirubin 0.5 (0.2-1.3) mg/dL AST 55 H (14-36) U/L ALT 64 H (4-34) U/L Alkaline Phosphatase 37 L (38-126) U/L Total Protein 6.7 (6.3-8.2) g/dL Albumin 4.2 (3.5-5.0) g/dL Lipase 48 (23-300) U/L Urine Color Urine Appearance (Clear) Urine pH (5.0-8.0) Ur Specific [place] (1.001-1.035) Urine Protein (Negative) Urine Glucose (UA) (Negative) Urine Ketones (Negative) Urine Blood (Negative) Urine Nitrite (Negative) Urine Bilirubin (Negative) Urine Urobilinogen (<2.0) mg/dL Ur Leukocyte Esterase (Negative) Urine RBC (0-5) /hpf Urine WBC (0-5) /hpf Ur Squamous Epith Cells (0-4) /hpf Hyaline Casts (0-2) /lpf Urine Mucus (None) /hpf Urine HCG, Qual (Not Detectd) Coronavirus (PCR) Detected A (Not Detectd) 08/27/21 08/27/21 Range/Units 13:34 13:34 WBC (3.8-10.6) k/uL RBC (3.80-5.40) m/uL Hgb (11.4-16.0) gm/dL Hct (34.0-46.0) % MCV (80.0-100.0) fL MCH (25.0-35.0) pg MCHC (31.0-37.0) g/dL RDW (11.5-15.5) % Plt Count (150-450) k/uL MPV Neutrophils % % Lymphocytes % % Monocytes % % Eosinophils % % Basophils % % Neutrophils # (1.3-7.7) k/uL Lymphocytes # (1.0-4.8) k/uL Monocytes # (0-1.0) k/uL Eosinophils # (0-0.7) k/uL Basophils # (0-0.2) k/uL Sodium (137-145) mmol/L Potassium (3.5-5.1) mmol/L Chloride (98-107) mmol/L Carbon Dioxide (22-30) mmol/L Anion Gap mmol/L BUN (7-17) mg/dL Creatinine (0.52-1.04) mg/dL Est GFR (CKD-EPI)AfAm (>60 ml/min/1.73 sqM) Est GFR (CKD-EPI)NonAf (>60 ml/min/1.73 sqM) Glucose (74-99) mg/dL Calcium (8.4-10.2) mg/dL Total Bilirubin (0.2-1.3) mg/dL AST (14-36) U/L ALT (4-34) U/L Alkaline Phosphatase (38-126) U/L Total Protein (6.3-8.2) g/dL Albumin (3.5-5.0) g/dL Lipase (23-300) U/L Urine Color Yellow Urine Appearance Clear (Clear) Urine pH 5.5 (5.0-8.0) Ur Specific [place] 1.016 (1.001-1.035) Urine Protein Negative (Negative) Urine Glucose (UA) Negative (Negative) Urine Ketones Negative (Negative) Urine Blood Trace H (Negative) Urine Nitrite Negative (Negative) Urine Bilirubin Negative (Negative) Urine Urobilinogen <2.0 (<2.0) mg/dL Ur Leukocyte Esterase Negative (Negative) Urine RBC <1 (0-5) /hpf Urine WBC 1 (0-5) /hpf Ur Squamous Epith Cells <1 (0-4) /hpf Hyaline Casts 1 (0-2) /lpf Urine Mucus Few H (None) /hpf Urine HCG, Qual Not Detected (Not Detectd) Coronavirus (PCR) (Not Detectd) Disposition Clinical Impression: COVID-19 Disposition: HOME SELF-CARE Condition: Stable Instructions (If sedation given, give patient instructions): Coronavirus Disease 2019 (COVID-19) Additional Instructions: Please return to the Emergency Department if symptoms worsen or any other concerns. Prescriptions: Ketorolac [Toradol] 10 mg PO Q8HR #15 tab Ondansetron Odt [Zofran Odt] 4 mg PO Q8HR PRN #14 tab PRN Reason: Nausea Is patient prescribed a controlled substance at d/c from ED?: No Referrals: Ferny Jon MD [Primary Care Provider] - 1-2 days Time of Disposition: 14:46
[2021-08-27 13:54] LABS: Appearance,Urine Clear (Clear); Bilirubin,Urine Negative (Negative); Blood,Urine Trace (Negative); Color,Urine Yellow; Glucose,Urine (UA) Negative (Negative); Hyaline Casts,Urine 1 /lpf (0-2); Ketones,Urine Negative (Negative); Leukocyte Esterase,Urine Negative (Negative); Mucus,Urine Few /hpf; Nitrite,Urine Negative (Negative); PH, Urine 5.5 (5.0-8.0); Protein,Urine Negative (Negative); RBC,Urine <1 /hpf (0-5); Specific Gravity,Urine 1.016 (1.001-1.035); Squamous Epithelial Cell,Urine <1 /hpf (0-4); Urobilinogen,Urine <2.0 mg/dL (<2.0); WBC,Urine 1 /hpf (0-5)
[2021-08-27 13:58] LABS: ALT 64 U/L (4-34); AST 55 U/L (14-36); African American GFR (CKD) >90 (>60 ml/min/1.73 sqM); Albumin 4.2 g/dL (3.5-5.0); Alkaline Phosphatase 37 U/L (38-126); Anion Gap 8 mmol/L; Blood Urea Nitrogen 12 mg/dL (7-17); Calcium 8.3 mg/dL (8.4-10.2); Carbon Dioxide 25 mmol/L (22-30); Chloride 104 mmol/L (98-107); Glucose 108 mg/dL (74-99); Lipase 48 U/L (23-300); Non-African American GFR(CKD) >90 (>60 ml/min/1.73 sqM); Sodium 137 mmol/L (137-145); Total Bilirubin 0.5 mg/dL (0.2-1.3); Total Protein 6.7 g/dL (6.3-8.2)
[2021-08-27 14:00] LABS: Potassium 4.3 mmol/L (3.5-5.1)
[2021-08-27 14:55] VITALS: BP 112/82; PULSE 65
== END 2021-08-27 14:55 | disposition home or self-care (01) ==
LOC: EC 12:43
DX: U07.1 COVID-19 (principal); F17.200 Nicotine dependence, unspecified, uncomplicated
CPT/HCPCS: 36415; 80053; 83690; 85025; 81001; 81025; 87635; 99284; 96374; 96375; 96361; J1885

== ENCOUNTER 2021-08-29 11:49 | Emergency (ER) | payer BC ==
[2021-08-29 11:54] VITALS: TEMP 98.4
[2021-08-29] MEDS ORDERED: PANTOPRAZOLE 40 MG/10 ML VIAL IVP STA (12:12)
[2021-08-29] MEDS ORDERED: HYDROmorphone 0.5 MG/0.5 ML SYRINGE IVP STA (12:12)
[2021-08-29] MEDS ORDERED: SODIUM CHLORIDE 0.9% 1,000 ML IV STA (12:12)
--- NOTE | 2021-08-29 12:19 | ED ---
General Adult HPI - General Chief complaint: Abdominal Pain Stated complaint: Abd pain/revisit Time Seen by Provider: 08/29/21 12:05 Source: patient, family, RN notes reviewed, old records reviewed Mode of arrival: ambulatory Limitations: no limitations - History of Present Illness Initial comments: 36-year-old female, alert and oriented 4, presents with complaints of epigastric abdominal pain since yesterday. Patient states that she tested positive for coronavirus on August 27. She states her symptoms started on August 21 with body aches. She states she has had nausea vomiting and diarrhea which have all resolved yesterday. Then she developed epigastric abdominal pain states feels like a balloon and worse with palpation. She denies any fevers. No previous surgical history. -: days(s) (2) Location: abdomen (Epigastric) Severity scale (1-10): 6 Quality: stabbing, sharp Consistency: constant Improves with: none Worsens with: movement, other (palpation) Associated Symptoms: nausea/vomiting, other (diarrhea) Treatments Prior to Arrival: none - Related Data Previous Rx's Medication Instructions Recorded Ketorolac [Toradol] 10 mg PO Q8HR #15 tab 08/27/21 Ondansetron Odt [Zofran Odt] 4 mg PO Q8HR PRN #14 tab 08/27/21 Amoxicillin/Potassium Clav 1 tab PO Q12HR #20 tab 08/29/21 [Augmentin 875-125 Tablet] Famotidine [Pepcid] 20 mg PO BID #28 tablet 08/29/21 Allergies Allergy/AdvReac Type Severity Reaction Status Date / Time No Known Allergies Allergy Verified 08/29/21 12:26 Review of Systems ROS Statement: Those systems with pertinent positive or pertinent negative responses have been documented in the HPI. ROS Other: All systems not noted in ROS Statement are negative. 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 Ovarian cyst lt side. History of Any Multi-Drug Resistant Organisms: None Reported Past Surgical History: Cardiac Ablation, Orthopedic Surgery Additional Past Surgical History / Comment(s): 2016 EPS with cardiac ablation, R knee arthroscopy, colonoscopy. Past Anesthesia/Blood Transfusion Reactions: Previous Problems w/ Anesthesia, Postoperative Nausea & Vomiting (PONV) Additional Past Anesthesia/Blood Transfusion Reaction / Comment(s): Pt had routine colonoscopy and per pt, she went bradycardic and was told they had a hard time bringing her heart rate up, and difficult to wake up post op. Past Psychological History: No Psychological Hx Reported Smoking Status: Current every day smoker Past Alcohol Use History: Occasional Past Drug Use History: None Reported - Past Family History Sister(s) Additional Family Medical History / Comment(s): POTS (POSTURAL ORTHOSTATIC TACHY SYNDROM) Mother Additional Family Medical History / Comment(s): Mother "never goes to the doctor." Grandmother and 2 uncles on mother's side have cardiac valve disease and grandmother also had CABG Father Family Medical History: Vascular Disorder Additional Family Medical History / Comment(s): Father had aneurysm behind his knee. General Exam Limitations: no limitations General appearance: alert, in no apparent distress Eye exam: Present: normal appearance. Absent: scleral icterus, conjunctival injection Respiratory exam: Present: normal lung sounds bilaterally. Absent: respiratory distress, wheezes, rales, chest wall tenderness, accessory muscle use Cardiovascular Exam: Present: bradycardia, normal heart sounds. Absent: JVD GI/Abdominal exam: Present: soft, tenderness (Epigastric and right upper quadrant), rebound, diminished bowel sounds. Absent: distended, rigid Extremities exam: Present: normal inspection, full ROM, normal capillary refill. Absent: tenderness, pedal edema, calf tenderness Back exam: Absent: CVA tenderness (R), CVA tenderness (L), rash noted Neurological exam: Present: alert, oriented X3 Psychiatric exam: Present: normal affect, normal mood Skin exam: Present: warm, dry, intact, normal color. Absent: cyanosis, diaphoretic, pallor Course Vital Signs 08/29/21 08/29/21 11:50 13:14 Temperature 98.4 F Pulse Rate 53 L 65 Respiratory 16 18 Rate Blood Pressure 109/64 113/70 O2 Sat by Pulse 100 100 Oximetry EKG Findings - EKG Results: EKG: sinus rhythm (Ventricular rate 44, NC interval 0.156, QRS 0.9, QTC 0.387) Medical Decision Making - Medical Decision Making 36-year-old female presents with epigastric abdominal pain since yesterday. Patient states that she tested positive for coronavirus on August 27 with symptom onset August 21. Liver is enlarged to 22 cm with periportal edema. Gallbladder and common bile duct not dilated. There is no evidence of gallbladder calculi. Mild acute diverticulitis cannot be excluded. Appendix is normal. AST 129 ALT is 219 total bili 0.6. Hemoglobin and hematocrit are stable there is no evidence of leukocytosis. EKG shows sinus bradycardia with no ST elevation or T-wave depression. Patient denies any chest pain or shortness of breath. Troponin is negative. Patient's abdomen is tender in the right upper quadrant consistent with enlarged liver. Hepatitis panel was sent and she was directed to follow up with her primary care doctor for results. Due to the diffuse abdominal pain patient will be treated for a mild diverticulitis with Augmentin. She was given a dose in the emergency room. I also prescribed her Pepcid for epigastric pain twice a day. I did discuss this case with Dr. Rock who stated that the patient can follow up with her [employer] or primary care doctor for the pelvic congestion. Vital signs are stable at discharge. I directed her and her family member to return to the emergency room with any new or worsening symptoms including inability to keep food or fluids down, increasing pain or fevers. She is agreeable to this plan of care. Case discussed with Dr. Johnson - Lab Data Result diagrams: 08/29/21 12:38 08/29/21 12:38 Lab Results 08/29/21 08/29/21 08/29/21 Range/Units 12:38 12:38 12:38 WBC 2.8 L (3.8-10.6) k/uL RBC 4.05 (3.80-5.40) m/uL Hgb 13.4 (11.4-16.0) gm/dL Hct 39.6 (34.0-46.0) % MCV 97.8 (80.0-100.0) fL MCH 33.0 (25.0-35.0) pg MCHC 33.7 (31.0-37.0) g/dL RDW 12.5 (11.5-15.5) % Plt Count 182 (150-450) k/uL MPV 7.9 Neutrophils % 51 % Lymphocytes % 39 % Monocytes % 6 % Eosinophils % 2 % Basophils % 0 % Neutrophils # 1.4 (1.3-7.7) k/uL Lymphocytes # 1.1 (1.0-4.8) k/uL Monocytes # 0.2 (0-1.0) k/uL Eosinophils # 0.0 (0-0.7) k/uL Basophils # 0.0 (0-0.2) k/uL PT 10.2 (9.0-12.0) sec INR 0.9 (<1.2) APTT 25.7 (22.0-30.0) sec Sodium 140 (137-145) mmol/L Potassium 3.8 (3.5-5.1) mmol/L Chloride 104 (98-107) mmol/L Carbon Dioxide 30 (22-30) mmol/L Anion Gap 6 mmol/L BUN 5 L (7-17) mg/dL Creatinine 0.58 (0.52-1.04) mg/dL Est GFR (CKD-EPI)AfAm >90 (>60 ml/min/1.73 sqM) Est GFR (CKD-EPI)NonAf >90 (>60 ml/min/1.73 sqM) Glucose 76 (74-99) mg/dL Plasma Lactic Acid Nick (0.7-2.0) mmol/L Calcium 8.5 (8.4-10.2) mg/dL Total Bilirubin 0.6 (0.2-1.3) mg/dL AST 129 H (14-36) U/L ALT 217 H (4-34) U/L Alkaline Phosphatase 81 (38-126) U/L Troponin I (0.000-0.034) ng/mL Total Protein 7.0 (6.3-8.2) g/dL Albumin 4.5 (3.5-5.0) g/dL Amylase 44 (30-110) U/L Lipase 39 (23-300) U/L 08/29/21 08/29/21 Range/Units 12:38 12:38 WBC (3.8-10.6) k/uL RBC (3.80-5.40) m/uL Hgb (11.4-16.0) gm/dL Hct (34.0-46.0) % MCV (80.0-100.0) fL MCH (25.0-35.0) pg MCHC (31.0-37.0) g/dL RDW (11.5-15.5) % Plt Count (150-450) k/uL MPV Neutrophils % % Lymphocytes % % Monocytes % % Eosinophils % % Basophils % % Neutrophils # (1.3-7.7) k/uL Lymphocytes # (1.0-4.8) k/uL Monocytes # (0-1.0) k/uL Eosinophils # (0-0.7) k/uL Basophils # (0-0.2) k/uL PT (9.0-12.0) sec INR (<1.2) APTT (22.0-30.0) sec Sodium (137-145) mmol/L Potassium (3.5-5.1) mmol/L Chloride (98-107) mmol/L Carbon Dioxide (22-30) mmol/L Anion Gap mmol/L BUN (7-17) mg/dL Creatinine (0.52-1.04) mg/dL Est GFR (CKD-EPI)AfAm (>60 ml/min/1.73 sqM) Est GFR (CKD-EPI)NonAf (>60 ml/min/1.73 sqM) Glucose (74-99) mg/dL Plasma Lactic Acid Nick 0.8 (0.7-2.0) mmol/L Calcium (8.4-10.2) mg/dL Total Bilirubin (0.2-1.3) mg/dL AST (14-36) U/L ALT (4-34) U/L Alkaline Phosphatase (38-126) U/L Troponin I <0.012 (0.000-0.034) ng/mL Total Protein (6.3-8.2) g/dL Albumin (3.5-5.0) g/dL Amylase (30-110) U/L Lipase (23-300) U/L Disposition Clinical Impression: Diverticulitis, Inflammatory liver disease Disposition: HOME SELF-CARE Condition: Good Instructions (If sedation given, give patient instructions): Diverticulitis (ED) Additional Instructions: Take antibiotics as prescribed for mild diverticulitis. Follow-up with your primary care doctor regarding your enlarged liver and hepatitis panel results. There is also some pelvic congestion noted on CT that should be reassessed. Return to the emergency room with any new or concerning symptoms including increased pain, fevers, or persistent nausea or vomiting. Prescriptions: Amoxicillin/Potassium Clav [Augmentin 875-125 Tablet] 1 tab PO Q12HR #20 tab Famotidine [Pepcid] 20 mg PO BID #28 tablet Is patient prescribed a controlled substance at d/c from ED?: No Referrals: Ferny Jon MD [Primary Care Provider] - 1-2 days Time of Disposition: 15:28
[2021-08-29 12:53] LABS: HCT 39.6 % (34.0-46.0); HGB 13.4 gm/dL (11.4-16.0); MCV 97.8 fL (80.0-100.0); RBC 4.05 m/uL (3.80-5.40); WBC 2.8 k/uL (3.8-10.6)
[2021-08-29 12:54] LABS: Basophils % (A) 0 %; Eosinophils % (A) 2 %; Lymphocytes # (A) 1.1 k/uL (1.0-4.8); Lymphocytes % (A) 39 %; MCHC 33.7 g/dL (31.0-37.0); Mean Platelet Volume 7.9; Monocytes # (A) 0.2 k/uL (0-1.0); Monocytes % (A) 6 %; Neutrophils # (A) 1.4 k/uL (1.3-7.7); Neutrophils % (A) 51 %; Platelet Count 182 k/uL (150-450); RDW 12.5 % (11.5-15.5)
[2021-08-29 13:04] LABS: INR 0.9 (<1.2); Partial Thromboplastin Time 25.7 sec (22.0-30.0); Prothrombin Time 10.2 sec (9.0-12.0)
[2021-08-29 13:07] LABS: ALT 217 U/L (4-34); AST 129 U/L (14-36); African American GFR (CKD) >90 (>60 ml/min/1.73 sqM); Albumin 4.5 g/dL (3.5-5.0); Alkaline Phosphatase 81 U/L (38-126); Amylase 44 U/L (30-110); Anion Gap 6 mmol/L; Blood Urea Nitrogen 5 mg/dL (7-17); Calcium 8.5 mg/dL (8.4-10.2); Carbon Dioxide 30 mmol/L (22-30); Chloride 104 mmol/L (98-107); Glucose 76 mg/dL (74-99); Lipase 39 U/L (23-300); Non-African American GFR(CKD) >90 (>60 ml/min/1.73 sqM); Potassium 3.8 mmol/L (3.5-5.1); Sodium 140 mmol/L (137-145); Total Bilirubin 0.6 mg/dL (0.2-1.3)
[2021-08-29 13:15] VITALS: BP 113/70; PULSE 65; RESP 18
--- NOTE | 2021-08-29 14:01 | CT ---
EXAMINATION TYPE: CT abdomen pelvis w con DATE OF EXAM: 08/29/2021 COMPARISON: CT dated 06/05/2018 HISTORY: Abdominal pain CT DLP: 607 mGycm Automated exposure control for dose reduction was used. TECHNIQUE: Helical acquisition of images was performed from the lung bases through the pelvis. CONTRAST: Performed without Oral Contrast and with IV Contrast, patient injected with 100 mL of Isovue 300. FINDINGS: Enlarged liver measuring 22 cm. It demonstrates a slightly heterogeneous parenchyma with suspected pe riportal edema best appreciated in the delayed images. The gallbladder and the CBD are not dilated. N o definite radiodense gallbladder calculi. Small amount of fluid is seen inferior to the liver. No de finite hepatic focal lesion identified. Patent portal vein and hepatic veins. Unremarkable spleen, pancreas, adrenals and kidneys. Unremarkable abdominal aorta and major abdominal and pelvic arteries. Unremarkable urinary bladder. Retroflexed uterus without gross uterine mass. No gross adnexal mass yet suboptimally assessed. Moderate amount of free pelvic fluid, more than expect ed for physiological fluid. Unremarkable stomach and duodenum. No evidence of bowel obstruction. Suboptimal assessment of the small and large bowel due to paucity of intra-abdominal fat. Tiny anal 8 mm hyperdensity which could represent calcification or hyperenhancement, please correlate clinically. Suspected colonic diverticulosis. Mild acute diverticulitis cannot be excluded. Mild wall thickening of the sigmoid colon. Fecal loading of the transverse colon and right hemicolon. Normal appendix. Congested left pelvic and left parametrial veins with prominent left gonadal vein which may suggest p elvic congestion syndrome/varices, please correlate clinically. No suspicious lymphadenopathy. Minima l right pleural fluid. No aggressive bone lesion. IMPRESSION: 1. Enlarging slightly heterogeneous liver with suspected periportal edema as described above, please correlate liver function tests and hepatic viral serology. No CBD dilatation or gallbladder dilatatio n. No radiodense gallbladder calculi. 2. Congested left pelvic and left uterine veins with prominent left gonadal vein which may suggest pe lvic congestion syndrome/varices, please correlate clinically. Other incidental findings as described above.
[2021-08-29] MEDS ORDERED: AMOXIC-POT CLAV 875-125MG 1 EACH TAB PO STA (14:30)
[2021-08-29 19:56] LABS: Hepatitis A Antibody IgM Nonreactive (Nonreactive); Hepatitis B Core IgM Nonreactive (Nonreactive); Hepatitis B Surface Antigen Nonreactive (Nonreactive); Hepatitis C IgG Antibody Nonreactive (Nonreactive)
== END 2021-08-29 16:12 | disposition home or self-care (01) ==
LOC: EC 11:49
DX: K57.92 Diverticulitis of intestine, part unspecified, without perforation or abscess without bleeding (principal); K75.9 Inflammatory liver disease, unspecified; F17.200 Nicotine dependence, unspecified, uncomplicated
CPT/HCPCS: 36415; 93005; 80053; 80074; 82150; 83605; 83690; 84484; 85025; 85610; 85730; 74177; 99284; 96374; 96375; 96361; C9113; J1170; Q9967